=== PATIENT | female | born 1965 | race African-American/Black ===

== ENCOUNTER 2016-04-09 03:31 | Emergency (ER) | payer SELFPAY ==
[2016-04-09] MEDS ORDERED: MORPHINE SULFATE 10 MG/ML INJ IV ONE ×3 (04:34→09:05)
[2016-04-09] MEDS ORDERED: ONDANSETRON HCL INJ/PF 4 MG/2 ML SDV IV ONE ×2 (04:34→08:21)
[2016-04-09] MEDS ORDERED: NORMAL SALINE 1000 ML 1,000 ML IV ONE ×2 (04:34→07:14)
[2016-04-09 04:42] LABS: ABSOLUTE BASOPHILS # (AUTO) 0.1 10^3/uL (0.0-0.2); ABSOLUTE LYMPHOCYTES (AUTO) 0.9 10^3/uL (0.5-4.7); ABSOLUTE MONOCYTES (AUTO) 0.5 10^3/uL (0.1-1.4); ABSOLUTE NEUT (AUTO) 11.9 10^3/uL (1.7-8.2); BASOPHILS % (AUTO) 0.6 % (0-2); HEMATOCRIT 39.2 % (36.0-47.0); HGB HCT DIFFERENCE -0.2; LYMPHOCYTES % (AUTO) 6.9 % (13-45); MEAN CORPUSCULAR HGB CONC 33.1 g/dL (32.0-36.0); MEAN CORPUSCULAR VOLUME 76 fl (80-97); MONOCYTES % (AUTO) 3.4 % (3-13); RED BLOOD COUNT 5.19 10^6/uL (3.72-5.28); RED CELL DISTRIBUTION WIDTH 14.6 % (11.5-14.0); SEGMENTED NEUTROPHILS % (AUTO) 89.1 % (42-78); WHITE BLOOD COUNT 13.4 10^3/uL (4.0-10.5)
--- NOTE | 2016-04-09 04:44 | ER Document Report ---
ED GI/ - General Time seen by provider: 04:43 TRAVEL OUTSIDE OF THE [place] IN LAST 30 DAYS: No <ANNE MARIE MILES - Last Filed: 04/09/16 07:14> <PRICE VIRAMONTES - Last Filed: 04/09/16 11:45> <LEONORA ORTEGA - Last Filed: 04/09/16 12:07> - General Chief Complaint: Vomiting/Diarrhea Stated Complaint: VOMITING Notes: Patient is a 51-year-old female that comes emergency department for chief complaint of pain in her mid to left upper abdomen that is sharp, she states after the pain began she began to vomit, she vomited about 5 times and then came to the emergency department. Symptoms started at about 11:30 PM. She had a loose bowel movement at that time as well. She denies blood in vomit or stool. She denies fever. She denies injury. She has had a cholecystectomy, appendectomy, hysterectomy, also has had partial bowel resection and history of bowel obstruction. She reports only occasional alcohol use. Past medical history of hypertension, previously medicated but is on no current medications reportedly. (ANNE MARIE MILES) - Related Data Allergies/Adverse Reactions: ampicillin [Ampicillin] Allergy (Verified 04/09/16 03:37) cefoxitin sodium [From Mefoxin] Allergy (Verified 04/09/16 03:37) ciprofloxacin [From Cipro] Allergy (Verified 04/09/16 03:37) ciprofloxacin HCl [From Cipro] Allergy (Verified 04/09/16 03:37) erythromycin base [Erythromycin Base] Allergy (Verified 04/09/16 03:37) metronidazole [From Flagyl] Allergy (Verified 04/09/16 03:37) Metronidazole HCl [From Flagyl] Allergy (Verified 04/09/16 03:37) Penicillins Allergy (Verified 04/09/16 03:37) ranitidine HCl [From Zantac] Allergy (Verified 04/09/16 03:37) Past Medical History - General Information source: Patient - Social History Smoking Status: Current Some Day Smoker Frequency of alcohol use: Occasional Drug Abuse: None Lives with: Family Family History: Reviewed & Not Pertinent - Past Medical History Cardiac Medical History: Reports: Hx Hypertension Neurological Medical History: Reports: Hx Migraine Renal/ Medical History: Denies: Hx Peritoneal Dialysis Past Surgical History: Reports: Hx Appendectomy, Hx Bowel Surgery, Hx Cholecystectomy, Hx Hysterectomy - Immunizations Hx Diphtheria, Pertussis, Tetanus Vaccination: Yes <WENDY MILESAN Last Filed: 04/09/16 07:14> Review of Systems - Review of Systems Constitutional: No symptoms reported EENT: No symptoms reported Cardiovascular: No symptoms reported Respiratory: No symptoms reported Gastrointestinal: See HPI Genitourinary: No symptoms reported Female Genitourinary: No symptoms reported Musculoskeletal: No symptoms reported Skin: No symptoms reported Hematologic/Lymphatic: No symptoms reported Neurological/Psychological: No symptoms reported <WENDY MILESAN Last Filed: 04/09/16 07:14> Physical Exam - Vital signs Interpretation: Normal - General General appearance: Alert, Anxious In distress: Moderate - patient appears to be in significant pain, tearful - HEENT Head: Normocephalic, Atraumatic Eyes: Normal Pupils: PERRL - Respiratory Respiratory status: No respiratory distress. No: Respiratory distress, Tachypnea Chest status: Nontender Breath sounds: Normal. No: Decreased air movement, Wheezing Chest palpation: Normal - Cardiovascular Rhythm: Regular, Tachycardia Heart sounds: Normal auscultation, S1 appreciated, S2 appreciated Murmur: No - Abdominal Inspection: Normal Distension: No distension Bowel sounds: Normal Tenderness: Tender - very tender with guarding in the epigastric, LUQ, and mid left abdomen, Guarding Organomegaly: No organomegaly - Back Back: Normal, Nontender. No: Tender - Extremities General upper extremity: Normal inspection, Nontender, Normal color, Normal ROM , Normal temperature General lower extremity: Normal inspection, Nontender, Normal color, Normal ROM , Normal temperature, Normal weight bearing. No: Ely's sign - Neurological Neuro grossly intact: Yes Cognition: Normal Orientation: AAOx4 [place] Coma Scale Eye Opening: Spontaneous Sudeep Coma Scale Verbal: Oriented Sudeep Coma Scale Motor: Obeys Commands Sudeep Coma Scale Total: 15 Speech: Normal Motor strength normal: LUE, RUE, LLE, RLE Sensory: Normal - Psychological Associated symptoms: Agitated - Skin Skin Temperature: Warm Skin Moisture: Dry Skin Color: Normal <ANNE MARIE MILES Last Filed: 04/09/16 07:14> Course - Laboratory Result Diagrams: 04/09/16 04:21 04/09/16 04:21 <ALEAHANNE MARIE ORR Last Filed: 04/09/16 07:14> - Laboratory Result Diagrams: 04/09/16 04:21 04/09/16 04:21 <PRICE VIRAMONTES - Last Filed: 04/09/16 11:45> - Laboratory Result Diagrams: 04/09/16 04:21 04/09/16 04:21 <LEONORA ORTEGA - Last Filed: 04/09/16 12:07> - Re-evaluation Re-evalutation: Patient appears and is feeling much improved after morphine and Zofran, acute abdominal film performed, no evidence of free air, no air-fluid levels suggesting obstruction, lipase is normal, patient is very had a cholecystectomy and appendectomy. Leukocytosis at 13,000 with elevation of neutrophils, patient has been vomiting, this is nonspecific. Patient was discussed with Dr. Garcia. Patient does have a history of gastritis, has had this diagnosed by endoscopy, used to be on a "a lot of antacids", patient on repeat examination is now specifically tender in the left upper quadrant now that she has calmed down. Suspect at least a gastritis component. Giving Protonix. On reevaluation patient appears to be in significant pain again, will re-dose pain medication, CAT scan with IV and oral contrast will be performed to rule out developing obstruction, colitis, or other abnormality. 04/09/16 07:00 Urinalysis finally resulted, does show 80 ketones, does show hematuria, patient does have a history of kidney stones, however her pain is in the upper abdomen, not in the lower abdomen, she has mild but not remarkable flank pain, no large stone visible on acute abdominal series. Because of patient's history of bowel obstruction and multiple surgeries with upper abdominal pain CAT scan will be performed with contrast, patient is tolerating this well. Introduced to Price MEDINA at bedside, no current complaints. (ANNE MARIE MILES) 04/09/16 07:17 report received from HUMBERTO Wharton. Pt is presently awake, alert, drinking oral contrast. voices no complaints. VSS 04/09/16 08:20 pt vomiting. will order anti nausea med. told to hold on PO contract for now. 04/09/16 09:04 vomiting has resolved. pt able to finish contrast but c/o increased pain. will re-dose pain med prior to CT 04/09/16 09:[address] no n/v presently. continues to c/o Left sided abdominal pain. VSS 04/09/16 11:11 CT results showing 2mm left distal ureteral stone. This is consistent with pt' s pain and other symptoms. presently patient is reporting pain in the LLQ, radiating from left flank. pain to epigastric and LUQ areas are more muscular, abdominal wall pain most likely from the vomiting. pt is hemodynamically stable , afebrile, low suspicion for acute abdomen or sepsis. pt will be discharged home with Flomax, Percocet, Phenergan SD. I have discussed this case with Dr Allen per protocol and he agrees with assessment and plan to discharge. pt agreeable with plan (PRICE VIRAMONTES) 04/09/16 12:05 Patient discharged home found vomiting in the front lobby. I offered patient to return to be further evaluation and treatment. Patient declined. Patient reports she just is really go home. Patient was warned for further symptoms to return to the emergency department she verbalized understanding. Again declined to stay for treatment. (LEONORA ORTEGA) - Vital Signs Vital signs: Temp Pulse Resp BP Pulse Ox 98.3 F 104 H 14 151/89 H 97 04/09/16 11:40 04/09/16 03:42 04/09/16 11:02 04/09/16 11:02 04/09/16 11:02 (ANNE MARIE MILES) (PRICE VIRAMONTES) (LEONORA ORTEGA) - Laboratory Laboratory results interpreted by me: 04/09/16 04/09/16 04/09/16 04:21 04:21 06:43 WBC 13.4 H MCV 76 L MCH 25.0 L RDW 14.6 H Seg Neutrophils % 89.1 H Lymphocytes % 6.9 L Absolute Neutrophils 11.9 H Glucose 120 H Calcium 10.8 H AST 37 H Urine Protein 100 H Urine Ketones 80 H Urine Blood LARGE H Ur Leukocyte Esterase TRACE H (PRICE VIRAMONTES) (LEONORA ORTEGA) Discharge <ANNE MARIE MILES - Last Filed: 04/09/16 07:14> <PRICE VIRAMONTES - Last Filed: 04/09/16 11:45> <LEONORA ORTEGA - Last Filed: 04/09/16 12:07> - Discharge Clinical Impression: Kidney stone HTN (hypertension) Qualifiers: Hypertension type: essential hypertension Qualified Code(s): I10 - Essential ( primary) hypertension Condition: Stable Disposition: HOME, SELF-CARE Instructions: Antinausea Medication ([facility]), Intravenous (IV) Fluids ([facility]), Flomax ([facility]), Oral Narcotic Medication ([facility]) Additional Instructions: You have a 2mm left kidney stone. Please take the meds as prescribed to help with the pain, nausea and the passing of the stone Push your water intake Return to ER for any worsening of your condition. Prescriptions: Hydrochlorothiazide 25 mg PO DAILY #30 tablet Oxycodone HCl/Acetaminophen [Percocet 5-325 mg Tablet] 1 - 2 tab PO ASDIR PRN # 25 tablet PRN Reason: Promethazine HCl [Phenergan 25 mg Supp.rect] 1 supp SD Q6H #12 supp.rect Tamsulosin HCl [Flomax 0.4 mg Cap.sr] 0.4 mg PO DAILY #7 cap.sr.24h Forms: Return to Work, Elevated Blood Pressure
[2016-04-09 05:02] LABS: ALANINE AMINOTRANSFERASE 33 U/L (9-52); ALKALINE PHOSPHATASE 109 U/L (38-126); ANION GAP 14 (5-19); ASPARTATE AMINO TRANSFERASE 37 U/L (14-36); BILIRUBIN,TOTAL 0.7 mg/dL (0.2-1.3); BLOOD UREA NITROGEN 12 mg/dL (7-20); CALCIUM 10.8 mg/dL (8.4-10.2); CARBON DIOXIDE 25 mmol/L (22-30); CHLORIDE 104 mmol/L (98-107); CREATININE RESULT 0.98 mg/dL (0.52-1.25); GLUCOSE 120 mg/dL (75-110); LIPASE 31.4 U/L (23-300); POTASSIUM 4.1 mmol/L (3.6-5.0); SODIUM 142.8 mmol/L (137-145); TOTAL PROTEIN 7.8 g/dL (6.3-8.2)
[2016-04-09] MEDS ORDERED: SUCRALFATE 1 GM TABLET PO ONE (05:52)
[2016-04-09] MEDS ORDERED: MAG HYDROX/AL HYDROX/SIMETH SUSP 30 ML UDCUP PO ONE (05:52)
[2016-04-09] MEDS ORDERED: PANTOPRAZOLE SODIUM 40 MG VIAL IV ONE (05:52)
[2016-04-09] MEDS ORDERED: DIPHENHYDRAMINE HCL 50 MG/ML VIAL IV ONE (06:59)
[2016-04-09 07:07] LABS: APPEARANCE,URINE SLIGHTLY-CLOUDY; BILIRUBIN,URINE NEGATIVE (NEGATIVE); GLUCOSE, URINE NEGATIVE (NEGATIVE); KETONES,URINE 80 mg/dL (NEGATIVE); LEUKOCYTE ESTERASE,URINE TRACE (NEGATIVE); NITRITE,URINE NEGATIVE (NEGATIVE); PROTEIN,URINE 100 mg/dL (NEGATIVE); URINE SPECIFIC GRAVITY 1.016; UROBILINOGEN,URINE NEGATIVE mg/dL (<2.0)
[2016-04-09] MEDS ORDERED: PROMETHAZINE HCL 25 MG SUPP.RECT PR ONE (11:05)
[2016-04-09] MEDS ORDERED: TAMSULOSIN HCL 0.4 MG CAP.SR.24H PO ONE (11:21)
[2016-04-09 11:27] VITALS: BP 151/89
== END 2016-04-09 11:45 | disposition home or self-care (01) ==
LOC: ER 03:31
DX: N20.0 Calculus of kidney (principal); I10 Essential (primary) hypertension; R11.10 Vomiting, unspecified; R19.7 Diarrhea, unspecified; R10.12 Left upper quadrant pain; F17.210 Nicotine dependence, cigarettes, uncomplicated
CPT/HCPCS: 96376; 99285; 96361; 96374; 96375; 36415; 83690; 85025; 80053; 81001; 74022; 74177; J1200; J2270; S0164; J3490; J2405; J7030

== ENCOUNTER 2016-07-05 11:29 | Emergency (ER) | payer SELFPAY ==
[2016-07-05] MEDS ORDERED: ASPIRIN 81 MG TABLET, CHEWABLE PO ONE (11:41)
[2016-07-05] MEDS ORDERED: IBUPROFEN 800 MG TABLET PO ONE (12:11)
[2016-07-05] MEDS ORDERED: ONDANSETRON HCL INJ/PF 4 MG/2 ML SDV IV ONE (12:11)
[2016-07-05] MEDS ORDERED: BUTALB/ACETAMINOPHEN/CAFFEINE 1 TAB EACH PO ONE (12:22)
[2016-07-05 12:34] LABS: ABSOLUTE BASOPHILS # (AUTO) 0.1 10^3/uL (0.0-0.2); ABSOLUTE EOSINOPHILS # (AUTO) 0.2 10^3/uL (0.0-0.6); ABSOLUTE LYMPHOCYTES (AUTO) 2.8 10^3/uL (0.5-4.7); ABSOLUTE MONOCYTES (AUTO) 0.6 10^3/uL (0.1-1.4); ABSOLUTE NEUT (AUTO) 5.6 10^3/uL (1.7-8.2); BASOPHILS % (AUTO) 0.7 % (0-2); EOSINOPHILS % (AUTO) 2.5 % (0-6); HEMATOCRIT 36.3 % (36.0-47.0); HEMOGLOBIN 11.8 g/dL (12.0-15.5); HGB HCT DIFFERENCE -0.9; LYMPHOCYTES % (AUTO) 30.2 % (13-45); MEAN CORPUSCULAR HEMOGLOBIN 24.6 pg (27.0-33.4); MEAN CORPUSCULAR HGB CONC 32.5 g/dL (32.0-36.0); MEAN CORPUSCULAR VOLUME 76 fl (80-97); MONOCYTES % (AUTO) 6.2 % (3-13); RED BLOOD COUNT 4.79 10^6/uL (3.72-5.28); RED CELL DISTRIBUTION WIDTH 14.7 % (11.5-14.0); SEGMENTED NEUTROPHILS % (AUTO) 60.4 % (42-78); WHITE BLOOD COUNT 9.3 10^3/uL (4.0-10.5)
--- NOTE | 2016-07-05 12:35 | RADIOLOGY REPORT (SQ) ---
EXAM DESCRIPTION: CHEST SINGLE VIEW COMPLETED DATE/TIME: 07/05/2016 12:23 pm REASON FOR STUDY: chest pain COMPARISON: 04/12/2015 EXAM PARAMETERS: NUMBER OF VIEWS: One view. TECHNIQUE: Single frontal radiographic view of the chest acquired. RADIATION DOSE: NA LIMITATIONS: None. FINDINGS: LUNGS AND PLEURA: No opacities, masses or pneumothorax. No pleural effusion. MEDIASTINUM AND HILAR STRUCTURES: No masses. Contour normal. HEART AND VASCULAR STRUCTURES: Heart normal in size. Normal vasculature. BONES: No acute findings. HARDWARE: None in the chest. OTHER: No other significant finding. IMPRESSION: NO ACUTE RADIOGRAPHIC FINDING IN THE CHEST. TECHNICAL DOCUMENTATION: JOB ID: [id number]
--- NOTE | 2016-07-05 12:46 | ER Document Report ---
ED General - General Chief Complaint: Chest Pain Stated Complaint: CHEST PAIN Time Seen by Provider: 07/05/16 11:41 Mode of Arrival: Medic Information source: Patient Notes: 51-year-old female history of hypertension with complaints of chest pressure sensation. She denies any fevers or chills nausea vomiting or diarrhea. Patient notes that she will intermittently have chest pain every 2-3 months, crushing midsternal associated with sob , pt given nitro with releif pt also admits to chronic migraine headaches, worsening headache after nitro TRAVEL OUTSIDE OF THE [place] IN LAST 30 DAYS: No - HPI Onset: Yesterday Onset/Duration: Sudden Quality of pain: Pressure Severity: Moderate Pain Level: 2 Associated symptoms: Chest pain Exacerbated by: Denies Relieved by: Denies Similar symptoms previously: Yes Recently seen / treated by doctor: Yes - Related Data Allergies/Adverse Reactions: ampicillin [Ampicillin] Allergy (Verified 04/09/16 03:37) cefoxitin sodium [From Mefoxin] Allergy (Verified 04/09/16 03:37) ciprofloxacin [From Cipro] Allergy (Verified 04/09/16 03:37) ciprofloxacin HCl [From Cipro] Allergy (Verified 04/09/16 03:37) erythromycin base [Erythromycin Base] Allergy (Verified 04/09/16 03:37) metronidazole [From Flagyl] Allergy (Verified 04/09/16 03:37) Metronidazole HCl [From Flagyl] Allergy (Verified 04/09/16 03:37) Penicillins Allergy (Verified 04/09/16 03:37) ranitidine HCl [From Zantac] Allergy (Verified 04/09/16 03:37) Past Medical History - Social History Smoking Status: Never Smoker Cigarette use (# per day): No Chew tobacco use (# tins/day): No Smoking Education Provided: No Family History: Reviewed & Not Pertinent - Past Medical History Cardiac Medical History: Reports: Hx Hypertension Neurological Medical History: Reports: Hx Migraine Renal/ Medical History: Denies: Hx Peritoneal Dialysis Past Surgical History: Reports: Hx Appendectomy, Hx Bowel Surgery, Hx Cholecystectomy, Hx Hysterectomy - Immunizations Hx Diphtheria, Pertussis, Tetanus Vaccination: Yes Review of Systems - Review of Systems Notes: PHYSICAL EXAMINATION: GENERAL: Well-appearing, well-nourished and in no acute distress. HEAD: Atraumatic, normocephalic. EYES: Pupils equal round and reactive to light, extraocular movements intact, conjunctiva are normal. ENT: Nares patent, oropharynx clear without exudates. Moist mucous membranes. NECK: Normal range of motion, supple without lymphadenopathy LUNGS: Breath sounds clear to auscultation bilaterally and equal. No wheezes rales or rhonchi. HEART: Regular rate and rhythm without murmurs ABDOMEN: Soft, nontender, nondistended abdomen. No guarding, no rebound. No masses appreciated. Female : deferred Musculoskeletal: Normal range of motion, no pitting or edema. No cyanosis. NEUROLOGICAL: Cranial nerves grossly intact. Normal speech, normal gait. Normal sensory, motor exams PSYCH: Normal mood, normal affect. SKIN: Warm, Dry, normal turgor, no rashes or lesions noted. Physical Exam - Vital signs Vitals: Resp BP Pulse Ox 22 H 141/88 H 99 07/05/16 12:00 07/05/16 12:00 07/05/16 12:00 Course - Re-evaluation Re-evalutation: 07/05/16 12:46 Cardiac enzymes lab work imaging are pending at this time 07/05/16 13:34 Troponin is not elevated, patient's chest pain has resolved. Patient was offered admission, she refuses to be admitted at this time. Patient understands risks and benefits, family member agrees to follow-up with cardiology and watch her today After performing a Medical Screening Examination, I spoke with the patient at length in regards to leaving the hospital against medical advice. I do not believe the patient should leave but the patient is alert oriented x4, understands the risks and benefits of staying and leaving including disability and . Pt understands that she can return at any time for further care and is more than welcome to do so. Pt verbalizes this understanding. - Vital Signs Vital signs: Temp Pulse Resp BP Pulse Ox 98.5 F 22 H 141/88 H 99 07/05/16 12:26 07/05/16 12:00 07/05/16 12:00 07/05/16 12:00 - Laboratory Result Diagrams: 07/05/16 12:02 07/05/16 12:02 Laboratory results interpreted by me: 07/05/16 07/05/16 12:02 12:02 Hgb 11.8 L MCV 76 L MCH 24.6 L RDW 14.7 H Sodium 145.1 H Creatine Kinase 345 H - Diagnostic Test Radiology reviewed: Image reviewed, Reports reviewed - EKG Interpretation by Me EKG shows normal: Sinus rhythm, [place], Intervals, QRS Complexes Discharge - Discharge Clinical Impression: Essential hypertension Chest pain Qualifiers: Chest pain type: unspecified Qualified Code(s): R07.9 - Chest pain, unspecified Migraine headache Qualifiers: Migraine type: unspecified Status migrainosus presence: without status migrainosus Intractability: not intractable Qualified Code(s): G43.909 - Migraine, unspecified, not intractable, without status migrainosus Condition: Stable Disposition: HOME, SELF-CARE Instructions: Chest Pain of Unclear Cause ([facility]) Referrals: LUIS MCCURDY FNP [Primary Care Provider] - Follow up as needed ROXANA BEJARANO MD [ACTIVE STAFF] - Follow up tomorrow RAGINI VELA MD [ACTIVE STAFF] - Follow up tomorrow
[2016-07-05 12:54] LABS: ALANINE AMINOTRANSFERASE 35 U/L (9-52); ALBUMIN 4.5 g/dL (3.5-5.0); ALKALINE PHOSPHATASE 71 U/L (38-126); ANION GAP 13 (5-19); ASPARTATE AMINO TRANSFERASE 33 U/L (14-36); BILIRUBIN,DIRECT 0.3 mg/dL (0.0-0.4); BILIRUBIN,TOTAL 0.6 mg/dL (0.2-1.3); BLOOD UREA NITROGEN 11 mg/dL (7-20); CALCIUM 9.7 mg/dL (8.4-10.2); CARBON DIOXIDE 26 mmol/L (22-30); CHLORIDE 106 mmol/L (98-107); CREATINE KINASE 345 U/L (30-135); CREATININE RESULT 0.63 mg/dL (0.52-1.25); GLUCOSE 109 mg/dL (75-110); SODIUM 145.1 mmol/L (137-145); TOTAL PROTEIN 7.1 g/dL (6.3-8.2)
[2016-07-05 13:06] LABS: CREATINE KINASE MB 1.87 ng/mL (<4.55)
[2016-07-05 13:07] LABS: TROPONIN I < 0.012 ng/mL
--- NOTE | 2016-07-05 13:35 | EKG REPORT ---
SEVERITY:- ABNORMAL ECG - SINUS RHYTHM CONSIDER LEFT VENTRICULAR HYPERTROPHY : Confirmed by: Devon Breen MD 05-Jul-2016 13:34:28
[2016-07-05 13:42] VITALS: BP 133/96
== END 2016-07-05 13:56 | disposition home or self-care (01) ==
LOC: ER 11:29
DX: R07.89 Other chest pain (principal); G43.909 Migraine, unspecified, not intractable, without status migrainosus; I10 Essential (primary) hypertension; R06.02 Shortness of breath; Z88.0 Allergy status to penicillin; Z88.1 Allergy status to other antibiotic agents; Z88.8 Allergy status to other drugs, medicaments and biological substances
CPT/HCPCS: 93005; 99285; 96374; 36415; 82553; 82550; 85025; 80053; 84484; 71010; 93010; J3490; J2405

== ENCOUNTER 2016-07-24 18:19 | Emergency (ER) | payer SELFPAY ==
[2016-07-24] MEDS ORDERED: NORMAL SALINE 1000 ML 1,000 ML IV ONE (19:34)
[2016-07-24] MEDS ORDERED: KETOROLAC TROMETHAMINE INJ/PF 30 MG/1 ML SDV IV ONE (19:35)
[2016-07-24] MEDS ORDERED: METOCLOPRAMIDE HCL INJ/PF 10 MG/2 ML SDV IV ONE (19:35)
[2016-07-24] MEDS ORDERED: DIPHENHYDRAMINE HCL 50 MG/ML VIAL IV ONE (19:35)
--- NOTE | 2016-07-24 19:35 | ER Document Report ---
ED Headache - General Chief Complaint: Headache Stated Complaint: HEADACHE Time Seen by Provider: 07/24/16 19:21 Notes: The patient is a 51-year-old female, past medical history chronic migraines, hypertension, presents with 1 day of her usual bilateral temporal migraines. She says that Stadol has helped her in the past, but she ran out of her prescription. She saw her primary care physician 2 days ago, but the PMD had a emergency and she cannot have the prescription refilled. She is also having a mild ache in her left arm and leg that started several days ago. She denies numbness, tingling, fevers, nausea, vomiting, blurry vision, neck stiffness, ataxia or back pain. TRAVEL OUTSIDE OF THE [place] IN LAST 30 DAYS: No - Related Data Allergies/Adverse Reactions: ampicillin [Ampicillin] Allergy (Verified 07/24/16 18:27) cefoxitin sodium [From Mefoxin] Allergy (Verified 07/24/16 18:27) ciprofloxacin [From Cipro] Allergy (Verified 07/24/16 18:27) ciprofloxacin HCl [From Cipro] Allergy (Verified 07/24/16 18:27) erythromycin base [Erythromycin Base] Allergy (Verified 07/24/16 18:27) metronidazole [From Flagyl] Allergy (Verified 07/24/16 18:27) Metronidazole HCl [From Flagyl] Allergy (Verified 07/24/16 18:27) Penicillins Allergy (Verified 07/24/16 18:27) ranitidine HCl [From Zantac] Allergy (Verified 07/24/16 18:27) Past Medical History - General Information source: Patient - Social History Smoking Status: Current Every Day Smoker Family History: Reviewed & Not Pertinent Patient has suicidal ideation: No Patient has homicidal ideation: No - Past Medical History Cardiac Medical History: Reports: Hx Hypertension Neurological Medical History: Reports: Hx Migraine Renal/ Medical History: Denies: Hx Peritoneal Dialysis Past Surgical History: Reports: Hx Appendectomy, Hx Bowel Surgery, Hx Cholecystectomy, Hx Hysterectomy - Immunizations Hx Diphtheria, Pertussis, Tetanus Vaccination: Yes Review of Systems - Review of Systems Notes: REVIEW OF SYSTEMS: CONSTITUTIONAL: -fevers, -chills EENT: -eye pain, -difficulty swallowing, -nasal congestion CARDIOVASCULAR:-chest pain, -syncope. RESPIRATORY: -cough, -SOB GASTROINTESTINAL: -abdominal pain, - nausea, -vomiting, -diarrhea GENITOURINARY: -dysuria, -hematuria MUSCULOSKELETAL: +left arm and leg pain, -back pain, -neck pain SKIN: -rash or skin lesions. HEMATOLOGIC: -easy bruising or bleeding. LYMPHATIC: -swollen, enlarged glands. NEUROLOGICAL: -altered mental status or loss of consciousness, +headache, - neurologic symptoms PSYCHIATRIC: -anxiety, -depression. ALL OTHER SYSTEMS REVIEWED AND NEGATIVE. Physical Exam - Vital signs Vitals: Temp Pulse Resp BP Pulse Ox 98.1 F 83 18 152/111 H 97 07/24/16 18:28 07/24/16 18:28 07/24/16 18:28 07/24/16 18:28 07/24/16 18:28 - Notes Notes: PHYSICAL EXAMINATION: GENERAL: Holding head and rocking back and forth in room HEAD: Atraumatic, normocephalic. EYES: Pupils equal round and reactive to light, extraocular movements intact, sclera anicteric, conjunctiva are normal. ENT: nares patent, oropharynx clear without exudates. Moist mucous membranes. NECK: Normal range of motion, supple without lymphadenopathy LUNGS: Breath sounds clear to auscultation bilaterally and equal. No wheezes rales or rhonchi. HEART: Regular rate and rhythm without murmurs ABDOMEN: Soft, nontender, normoactive bowel sounds. No guarding, no rebound. No masses appreciated. EXTREMITIES: Normal range of motion, no pitting or edema. No cyanosis. NEUROLOGICAL: Cranial nerves grossly intact. Normal speech, normal gait. Normal sensory and motor exams. PSYCH: Normal mood, normal affect. SKIN: Warm, Dry, normal turgor, no rashes or lesions noted. Course - Re-evaluation Re-evalutation: Headache is exactly the same as her prior migraines. Do not suspect meningitis , ICH SAH at this time. After her migraines cocktail, she feels much better. Her left arm and leg pain may be from her lifting. No evidence of injuries and strong distal pulses. Instructed her to follow-up with her primary care physician for a refill of her Stadol and further evaluation and treatment. - Vital Signs Vital signs: Temp Pulse Resp BP Pulse Ox 98.1 F 83 18 152/111 H 97 07/24/16 18:28 07/24/16 18:28 07/24/16 18:28 07/24/16 18:28 07/24/16 18:28 Discharge - Discharge Clinical Impression: Recurrent headache Condition: Stable Disposition: HOME, SELF-CARE Additional Instructions: HEADACHE: The physician does not feel that the headache you are experiencing has a serious underlying cause. Most headaches are due to emotional stress, with resultant muscle tension (tension headache). Occasionally, headaches are secondary to changes in the blood vessels of the scalp (vascular headache and migraine headache). Sometimes, a headache is the first symptom of another developing illness, such as a viral infection. You have no evidence of stroke, bleeding, meningitis, or other serious cause of your headache. The treatment of headaches varies with the severity and cause of the pain. Not all headaches need pain shots. In fact, there is evidence that using narcotics for headaches may make them worse in the long run. The physician will determine the therapy that's in your best interest. If you develop a fever, if the headache is different from any you've previously experienced, or if the headache progressively worsens, then call your physician at once or go to the emergency room. REGLAN (METOCLOPRAMIDE): Reglan has been prescribed. This medicine affects the stomach and intestines. It can be used to treat nausea and vomiting, to prevent reflux of stomach acid up into the esophagus, or to increase the contractions of the stomach and intestines. It is often prescribed for esophagitis, and for paralysis of the stomach in diabetics. Reglan can cause either mild restlessness or drowsiness. You should contact the doctor at once if you become extremely restless, anxious, or cannot sleep, or if you develop uncontrollable motions of the lips, tongue, or jaw. Do not take alcohol with this medicine. Do not drive or operate machinery until you have been taking this medicine long enough to know how it affects you. Call the doctor if you develop abdominal pains, lightheadedness, black stool, or blood in the stool or vomitus. USE OF DIPHENHYDRAMINE: Diphenhydramine (Benadryl) is an antihistamine and has been recommended to help treat your headache and to prevent side effects of other medications used to treat headaches. The medication can be repeated four times daily. Age Elixir (12.5 mg/tsp) 25 mg pill adult 1-2 tabs Antihistamines may cause drowsiness, especially with the first dose. Do not operate machinery or drive while under the effects of the medication. Do not combine the medication with alcohol, or with any other medication without talking to your doctor. ANTINAUSEA MEDICATION: You have been given a medication to suppress nausea and vomiting. This type of medication can be given as a shot, pill, or suppository. It will usually last for many hours. Pills and shots usually last six to eight hours, suppositories last about 12 hours. For the typical illness, only one or two doses of the medication may be necessary. Mild lightheadedness may occur. This type of medicine can cause drowsiness. Do not drive or operate dangerous machinery while under its influence. Do not mix with alcohol. See your doctor at once if you have muscle spasms or tightness, or uncontrollable motions (particularly of the neck, mouth, or jaw). Persistent vomiting or severe lightheadedness should also be evaluated by the physician. TORADOL INJECTION: You have been given an injection of ketorolac tromethamine (Toradol). This is an excellent, safe drug for pain control. It also has potent antiinflammatory action. You should have significant pain relief within about one hour. Toradol is not addicting and is non-sedating. It does not interfere with driving or work. Call or return if you develop itching, hives, shortness of breath, or rash. FOLLOW-UP CARE: If you have been referred to a physician for follow-up care, call the physician s office for an appointment as you were instructed or within the next two days. If you experience worsening or a significant change in your symptoms, notify the physician immediately or return to the Emergency Department at any time for re-evaluation. Prescriptions: Hydrochlorothiazide 25 mg PO DAILY #30 tablet Forms: Elevated Blood Pressure
[2016-07-24 21:40] VITALS: BP 114/73
== END 2016-07-24 21:38 | disposition home or self-care (01) ==
LOC: ER 18:19
DX: R51 Headache (principal); I10 Essential (primary) hypertension; M79.602 Pain in left arm; F17.200 Nicotine dependence, unspecified, uncomplicated
CPT/HCPCS: 99284; 96361; 96374; 96375; J1200; J1885; J2765; J7030

== ENCOUNTER 2017-11-14 10:02 | Emergency (ER) | payer SELFPAY ==
[2017-11-14] MEDS ORDERED: DEXAMETHASONE SOD PHOS INJ 10 MG/1 ML VIAL IM ONE (10:43)
[2017-11-14] MEDS ORDERED: LIDOCAINE 5% (700 MG) TRANSDERMAL ADH..PATCH TP ONE (10:43)
[2017-11-14] MEDS ORDERED: KETOROLAC TROMETHAMINE INJ/PF 30 MG/1 ML SDV IM ONE (10:43)
--- NOTE | 2017-11-14 10:49 | ER Document Report ---
ED Neck/Back Problem - General Chief Complaint: Back Pain Stated Complaint: BACK PAIN Time Seen by Provider: 11/14/17 10:32 Mode of Arrival: Ambulatory Information source: Patient Notes: 52-year-old female presents to ED for complaint of back pain times 2 weeks. She states it radiates down both legs. She also complains of left shoulder pain since May. 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 She is alert and oriented respirations regular and unlabored speaking in full sentences. TRAVEL OUTSIDE OF THE [place] IN LAST 30 DAYS: No - HPI Patient complains to provider of: Pain, Injury, Lower back - And left shoulder Onset: Other - Left shoulder and sacral low back for 2 weeks Where: Work Onset: Gradual Timing: Still present, Worse Quality of pain: Sharp Severity: Moderate Pain Level: 4 Context: Bending, Lifting, Turning Recent injury: Possibly Associated symptoms: Like prior neck/back pain, Numbness/tingling, Radiation to leg, Lower back pain, Other - Shoulder pain with any movement Exacerbated by: Movement of trunk, Sitting position Relieved by: Nothing Similar symptoms previously: Yes Recently seen / treated by doctor: No - Related Data Allergies/Adverse Reactions: ampicillin [Ampicillin] Allergy (Verified 11/14/17 10:04) cefoxitin sodium [From Mefoxin] Allergy (Verified 11/14/17 10:04) ciprofloxacin [From Cipro] Allergy (Verified 11/14/17 10:04) ciprofloxacin HCl [From Cipro] Allergy (Verified 11/14/17 10:04) erythromycin base [Erythromycin Base] Allergy (Verified 11/14/17 10:04) metronidazole [From Flagyl] Allergy (Verified 11/14/17 10:04) Metronidazole HCl [From Flagyl] Allergy (Verified 11/14/17 10:04) Penicillins Allergy (Verified 11/14/17 10:04) ranitidine HCl [From Zantac] Allergy (Verified 11/14/17 10:04) Past Medical History - General Information source: Patient - Social History Smoking Status: Current Every Day Smoker Cigarette use (# per day): Yes Smoking Education Provided: Yes - 4 minutes Frequency of alcohol use: None Drug Abuse: None Lives with: Family Family History: Reviewed & Not Pertinent Patient has suicidal ideation: No Patient has homicidal ideation: No - Past Medical History Cardiac Medical History: Reports: Hx Hypertension Pulmonary Medical History: Reports: Hx Asthma EENT Medical History: Reports: None Neurological Medical History: Reports: Hx Migraine Endocrine Medical History: Reports: None Renal/ Medical History: Reports: Hx Kidney Stones Malignancy Medical History: Reports: None GI Medical History: Reports: None Musculoskeletal Medical History: Reports Hx Arthritis, Reports Hx Musculoskeletal Trauma Skin Medical History: Reports None Psychiatric Medical History: Reports: None Traumatic Medical History: Reports: None Infectious Medical History: Reports: None Past Surgical History: Reports: Hx Appendectomy, Hx Bowel Surgery - obstruction , Hx Cholecystectomy, Hx Hysterectomy - Immunizations Hx Diphtheria, Pertussis, Tetanus Vaccination: Yes Review of Systems - Review of Systems Constitutional: No symptoms reported EENT: No symptoms reported Cardiovascular: No symptoms reported Respiratory: No symptoms reported Gastrointestinal: No symptoms reported Genitourinary: No symptoms reported Female Genitourinary: No symptoms reported Musculoskeletal: Back pain - Low back, Joint pain - Left shoulder Skin: No symptoms reported Hematologic/Lymphatic: No symptoms reported Neurological/Psychological: No symptoms reported -: Yes All other systems reviewed and negative Physical Exam - Vital signs Vitals: Temp Pulse Resp BP Pulse Ox 98.7 F 89 18 140/90 H 98 11/14/17 10:10 11/14/17 10:10 11/14/17 10:10 11/14/17 10:10 11/14/17 10:10 Interpretation: Normal - General General appearance: Appears well, Alert - HEENT Head: Normocephalic, Atraumatic Eyes: Normal Pupils: PERRL - Respiratory Respiratory status: No respiratory distress Chest status: Nontender Breath sounds: Normal Chest palpation: Normal - Cardiovascular Rhythm: Regular Heart sounds: Normal auscultation Murmur: No - Abdominal Inspection: Healed incision Distension: No distension Bowel sounds: Normal Tenderness: Nontender Organomegaly: No organomegaly - Back Back: Tender, Vertebra tenderness. No: Deformity/step-off, CVA tenderness, Scars, Scoliosis, Wounds Notes: No signs or symptoms of cauda equina, no loss of control of bowel or bladder, no loss of control of lower extremities, no saddle anesthesia, no decrease in sensation to the legs. Patient also has pain to the left rotator cuff. She does have some limited motion to the shoulder due to pain. When supported the weight she can move the arm. - Extremities General upper extremity: Normal inspection, Normal color, Normal temperature General lower extremity: Normal inspection, Nontender, Normal color, Normal ROM , Normal temperature, Normal weight bearing. No: Ely's sign Shoulder: Tender, Limited ROM - Due to pain. No: Abrasion, Dislocation, Ecchymosis, Instability, Laceration - Neurological Neuro grossly intact: Yes Cognition: Normal Orientation: AAOx4 Sudeep Coma Scale Eye Opening: Spontaneous Sudeep Coma Scale Verbal: Oriented Alexis Coma Scale Motor: Obeys Commands Alexis Coma Scale Total: 15 Speech: Normal Motor strength normal: LUE, RUE, LLE, RLE Sensory: Normal Biceps - Reflex grade: 2 = Normal Triceps - Reflex grade: 2 = Normal Brachioradialis - Reflex grade: 2 = Normal Knee - Reflex grade: 2 = Normal Ankle - Reflex grade: 2 = Normal - Psychological Associated symptoms: Normal affect, Normal mood - Skin Skin Temperature: Warm Skin Moisture: Dry Skin Color: Normal Course - Re-evaluation Re-evalutation: 11/14/17 21:16 X-rays were discussed with patient and written report of x-rays given to patient. Patient was given name and number of orthopedics to follow-up with. Patient was given exercises for the low back and the shoulder. Patient instructed to follow-up with orthopedics by telephone and schedule a follow-up appointment. - Vital Signs Vital signs: Temp Pulse Resp BP Pulse Ox 98.2 F 76 16 135/70 H 98 11/14/17 12:04 11/14/17 12:04 11/14/17 12:04 11/14/17 12:04 11/14/17 12:04 - Diagnostic Test Radiology reviewed: Image reviewed, Reports reviewed Discharge - Discharge Clinical Impression: Left shoulder pain Qualifiers: Chronicity: chronic Qualified Code(s): M25.512 - Pain in left shoulder Low back pain Qualifiers: Chronicity: acute Back pain laterality: bilateral Sciatica presence: with sciatica Sciatica laterality: bilateral sciatica Qualified Code(s): M54.42 - Lumbago with sciatica, left side Condition: Stable Disposition: HOME, SELF-CARE Instructions: Family Physicians / Practices Additional Instructions: Shoulder Injury You have injured your shoulder. This usually results from stretching or tearing of the tendons during trauma. Time and protection are required in order to heal properly. Many injuries are quite disabling, and should be taken seriously. Initial treatment includes cold packs and a sling to rest the shoulder. The physician has assessed the seriousness of your injury, and has outlined a treatment plan. Understand that this treatment may change, depending on how you progress. If a re-examination was recommended, it is important that you follow up as instructed. Some shoulder injuries (such as partial tear of the rotator cuff) are only suspected after you've failed to improve. Call us if there's severe pain, numbness, or loss of function. Exercise Program for the Shoulder Since the shoulder moves in so many directions, the joint attachment is weak. Muscles provide most of the stability to the shoulder. You must exercise your shoulder to prevent painful instability or stiffening. PASSIVE - These may be begun within a few days of the injury. While standing, lean forward, allowing the arm to hang down towards the floor. Move the arm in small circles while slowly twisting your chest towards and away from the hanging arm. Do this for one minute. ACTIVE - These may be performed when the doctor gives permission. Begin with the arms at the sides. Raise the arms forward (shoulder's width apart) until they reach shoulder level. Then slowly swing both arms back until they are aiming straight out away from each other. Then bring them forward again, and finally, lower them to your sides. Repeat 20 to 30 times. As you improve, put weights in your hands for the exercise. Start with one pound, and work up to 10 pounds. Never use more than is comfortable. Athletes may work up to 30 pounds. LOW BACK PAIN: Three out of every four people will have an episode of disabling back pain during their lifetime. Most commonly the pain is due to straining of the muscles and ligaments in the low back. Usual treatment includes: (1) Rest on a firm surface. Avoid lying on your stomach. (2) Ice pack the painful area. After a few days, gentle heat may be used intermittently to relax the area, or ice packs can be continued. (3) Medication may be needed -- muscle relaxers and antiinflammatory medicines are commonly used. (4) As the back improves, exercises are prescribed to strengthen the back and abdominal muscles. Your doctor will advise you on the proper care for your back at each stage in your recovery. You may be better in a few days -- or healing may take several weeks. If new symptoms of a "herniated disc" (radiation of pain, numbness, or tingling down the back of the leg or weakness in the leg) occur, you should be re-examined. Further testing may be necessary. Toradol Injection You have been given an injection of ketorolac tromethamine (Toradol). This is an excellent, safe drug for pain control. It also has potent antiinflammatory action. You should have significant pain relief within about one hour. Toradol is not addicting and is non-sedating. It does not interfere with driving or work. Call or return if you develop itching, hives, shortness of breath, or rash. STEROID MEDICATION: You have been given an injection of medicine of the cortisone/steroid class. This medication is used to control inflammation or allergy. It is often continued as a pill for a short period of time, until the acute process subsides. There are usually no side effects from short-term use of cortisone-like medications. Some persons feel an increased sense of well-being and are not sleepy at bedtime. Long-term use of cortisone medications is best avoided, unless required for a severe condition. If your condition does not remit, or relapses after the course of corticosteroid medication, you should consult your physician. Stretching Exercises for the Back The physician has recommended that you begin stretching exercises for your back. These are often used even while the back is painful. However, you should notify the physician if the activities seem to increase your pain. PELVIC TILT: Lie flat on your back with knees bent. Tighten your stomach and buttock muscles so it flattens your lower back against the floor. Hold 10 seconds. Repeat 10 times, twice daily. KNEE RAISE: Lying on the back with knees bent, raise one knee to your chest, then the other. Hold both knees against the chest 10 seconds, then lower one knee at a time. Repeat 10 times, twice daily. PARTIAL TRUNK RAISE: Lie face down, arms at your sides. Keeping your waist on the floor, use your arms raise your chest up. Support yourself on your elbows for 30 seconds. Repeat twice daily, increasing the time to two minutes as you recover. MUSCLE RELAXERS: Muscle relaxing medications are usually prescribed for acute muscle spasm or injury to the neck and back. They are often combined with antiinflammatory pain medication for increased relief. You may stop the muscle relaxer when the pain and stiffness have improved. Start the medication again if spasms recur. Muscle relaxers may cause drowsiness, especially with the first dose. Do not operate machinery or drive while under the effects of the medication. Most muscle relaxers last up to 24 hours. Do not combine the medication with alcohol. ICE PACKS: Apply ice packs frequently against the painful area. Many different schedules are recommended, such as "20 minutes on, 20 minutes off" or "one hour ice, two hours rest." If you need to work, you may need to go longer between ice treatments. You should plan to have the area ice packed AT LEAST one fourth of the time. The ice should be applied over the wrap, tape, or splint, or over a layer of cloth -- not directly against the skin. Some ice bags have a built-in cloth and can be put directly on the skin. WARM PACKS: After approximately two days, apply gentle heat (such as a heating pad or hot water bottle) for about 20 to 30 minutes about every two hours -- at least four times daily. Warmth and elevation will help you make a more rapid recovery , and will ease the pain considerably. Do not use HOT heat, and never apply heat for longer than 30 minutes. The continuous heat can invisibly damage skin and muscles -- even when no burn is seen on the surface. Damaged muscles can make you MORE sore. Lidocaine patches may also help with your pain. We did put a Lidoderm patch on in the emergency room. You can buy patches [id number]. FOLLOW-UP CARE: If you have been referred to a physician for follow-up care, call the physician s office for an appointment as you were instructed or within the next two days. If you experience worsening or a significant change in your symptoms, notify the physician immediately or return to the Emergency Department at any time for re-evaluation. Prescriptions: Methocarbamol [Robaxin 500 mg Tablet] 500 mg PO BIDP PRN #14 tablet PRN Reason: For Back Pain Forms: Elevated Blood Pressure, Smoking Cessation Education, Return to Work Referrals: [facility] [Provider Group] - Follow up as needed
--- NOTE | 2017-11-14 11:16 | RADIOLOGY REPORT (SQ) ---
EXAM DESCRIPTION: SHOULDER LEFT 2 OR MORE VIEWS COMPLETED DATE/TIME: 11/14/2017 11:04 am REASON FOR STUDY: pain with any movement of left arm, no known injury, diffuse left shoulder pain COMPARISON: None. NUMBER OF VIEWS: Three views. TECHNIQUE: Internal rotation, external rotation, and Y view images acquired of the left shoulder. LIMITATIONS: None. FINDINGS: MINERALIZATION: Normal. BONES: No acute fracture or dislocation. No worrisome bone lesions. JOINTS: No glenohumeral malalignment. No acromioclavicular joint widening VISUALIZED LUNGS AND RIBS: No pneumothorax. No rib fracture. SOFT TISSUES: No radiopaque foreign body. OTHER: No other significant finding. IMPRESSION: NEGATIVE STUDY OF THE LEFT SHOULDER. NO RADIOGRAPHIC EVIDENCE OF ACUTE INJURY. TECHNICAL DOCUMENTATION: JOB ID: [id number] [employer]- All Rights Reserved Reading location - IP/workstation name: [email or web address]
--- NOTE | 2017-11-14 11:17 | RADIOLOGY REPORT (SQ) ---
EXAM DESCRIPTION: L SPINE WHOLE COMPLETED DATE/TIME: 11/14/2017 11:04 am REASON FOR STUDY: pain for 2 weeks getting worse radiates down both COMPARISON: 04/26/2008, 07/08/2007, 10/16/2006 NUMBER OF VIEWS: Five views including obliques. TECHNIQUE: AP, lateral, oblique, and sacral radiographic images acquired of the lumbar spine. LIMITATIONS: None. FINDINGS: MINERALIZATION: Normal. SEGMENTATION: There are only 4 lumbar vertebral body present. ALIGNMENT: Normal. VERTEBRAE: Maintained height. No fracture or worrisome bone lesion. DISCS: Preserved height. No significant osteophytes or end plate irregularity. POSTERIOR ELEMENTS: Pedicles and facets are intact. No pars defect or posterior arch defects. Moder ate facet arthropathy at the lower lumbar spine and lumbosacral junction HARDWARE: None in the spine. PARASPINAL SOFT TISSUES: Normal. PELVIS: Not included in the field of view. SI joints intact. OTHER: No other significant finding. IMPRESSION: Degenerative changes at the lumbosacral junction. No acute fracture or malalignment Only 4 lumbar vertebral bodies are present TECHNICAL DOCUMENTATION: JOB ID: [id number] [employer]- All Rights Reserved Reading location - IP/workstation name: [email or web address]
[2017-11-14 12:05] VITALS: BP 135/70
== END 2017-11-14 12:05 | disposition home or self-care (01) ==
LOC: ER 10:02
DX: M25.512 Pain in left shoulder (principal); M54.42 Lumbago with sciatica, left side; F17.210 Nicotine dependence, cigarettes, uncomplicated; I10 Essential (primary) hypertension; Z88.0 Allergy status to penicillin; Z88.3 Allergy status to other anti-infective agents; Z87.442 Personal history of urinary calculi; Z90.49 Acquired absence of other specified parts of digestive tract; Z90.710 Acquired absence of both cervix and uterus
CPT/HCPCS: 99406; 99283; 96372; 72110; 73030; J1885; J1100

== ENCOUNTER 2018-02-20 13:53 | Emergency (ER) | payer SELFPAY ==
[2018-02-20 14:19] VITALS: BP 170/108
--- NOTE | 2018-02-20 15:01 | ER Document Report ---
ED Extremity Problem, Upper - General Chief Complaint: Shoulder Pain Stated Complaint: LEFT SHOULDER PAIN Time Seen by Provider: 02/20/18 14:30 Mode of Arrival: Ambulatory Information source: Patient Notes: 52-year-old female presents to ED for complaint of left shoulder pain since May 2017. She is crying during exam because she states that the pain is so bad. She states she has been using Tylenol and Motrin and trying to move it but the pain is so bad now she cannot move it. She denies any traumas. She states she was lifting some boxes at work in May. She states she been using BenGay Tylenol and Motrin. TRAVEL OUTSIDE OF THE [place] IN LAST 30 DAYS: No - HPI Patient complains to provider of: Left, Shoulder Onset: Other - May 2017 which is about 8 months ago Recent injury: No Where: Work - May 2017 Severity of pain: Severe Pain Level: 5 Associated symptoms: None Exacerbated by: Movement, Exertion Relieved by: Nothing Similar symptoms previously: Yes Recently seen / treated by doctor: No - Related Data Allergies/Adverse Reactions: ampicillin [Ampicillin] Allergy (Verified 02/20/18 13:54) cefoxitin sodium [From Mefoxin] Allergy (Verified 02/20/18 13:54) ciprofloxacin [From Cipro] Allergy (Verified 02/20/18 13:54) ciprofloxacin HCl [From Cipro] Allergy (Verified 02/20/18 13:54) erythromycin base [Erythromycin Base] Allergy (Verified 02/20/18 13:54) metronidazole [From Flagyl] Allergy (Verified 02/20/18 13:54) Metronidazole HCl [From Flagyl] Allergy (Verified 02/20/18 13:54) Penicillins Allergy (Verified 02/20/18 13:54) ranitidine HCl [From Zantac] Allergy (Verified 02/20/18 13:54) Past Medical History - General Information source: Patient - Social History Smoking Status: Current Every Day Smoker Cigarette use (# per day): Yes - 1/3 pack/day Smoking Education Provided: Yes - Woman Frequency of alcohol use: None Drug Abuse: None Lives with: Family Family History: Reviewed & Not Pertinent Patient has suicidal ideation: No Patient has homicidal ideation: No - Past Medical History Cardiac Medical History: Reports: Hx Hypertension Pulmonary Medical History: Reports: Hx Asthma EENT Medical History: Reports: None Neurological Medical History: Reports: Hx Migraine Endocrine Medical History: Reports: None Renal/ Medical History: Reports: Hx Kidney Stones Malignancy Medical History: Reports: None GI Medical History: Reports: None Musculoskeletal Medical History: Reports Hx Arthritis, Reports Hx Musculoskeletal Trauma Skin Medical History: Reports None Psychiatric Medical History: Reports: None Traumatic Medical History: Reports: None Infectious Medical History: Reports: None Past Surgical History: Reports: Hx Appendectomy, Hx Bowel Surgery - obstruction, Hx Cholecystectomy, Hx Hysterectomy - Immunizations Immunizations up to date: Yes Hx Diphtheria, Pertussis, Tetanus Vaccination: Yes Review of Systems - Review of Systems Constitutional: No symptoms reported EENT: No symptoms reported Cardiovascular: No symptoms reported Respiratory: No symptoms reported Gastrointestinal: No symptoms reported Genitourinary: No symptoms reported Female Genitourinary: No symptoms reported Musculoskeletal: Joint pain, Joint swelling, Muscle pain, Muscle stiffness Skin: No symptoms reported Hematologic/Lymphatic: No symptoms reported Neurological/Psychological: No symptoms reported -: Yes All other systems reviewed and negative Physical Exam - Vital signs Vitals: Temp Pulse Resp BP Pulse Ox 97.4 F 98 18 170/108 H 99 02/20/18 14:16 02/20/18 14:16 02/20/18 14:16 02/20/18 14:16 02/20/18 14:16 Interpretation: Normal - General General appearance: Appears well, Alert - HEENT Head: Normocephalic, Atraumatic Eyes: Normal Pupils: PERRL - Respiratory Respiratory status: No respiratory distress Chest status: Nontender Breath sounds: Normal Chest palpation: Normal - Cardiovascular Rhythm: Regular Heart sounds: Normal auscultation Murmur: No - Abdominal Inspection: Normal Distension: No distension Bowel sounds: Normal Tenderness: Nontender Organomegaly: No organomegaly - Back Back: Normal, Nontender - Extremities General upper extremity: Normal inspection, Normal color, Normal temperature General lower extremity: Normal inspection, Nontender, Normal color, Normal ROM, Normal temperature, Normal weight bearing. No: Ely's sign Shoulder: Tender, Limited ROM - due to pain - Neurological Neuro grossly intact: Yes Cognition: Normal Orientation: AAOx4 [place] Coma Scale Eye Opening: Spontaneous [place] Coma Scale Verbal: Oriented [place] Coma Scale Motor: Obeys Commands [place] Coma Scale Total: 15 Speech: Normal Motor strength normal: LUE, RUE, LLE, RLE Sensory: Normal - Psychological Associated symptoms: Normal affect, Normal mood - Skin Skin Temperature: Warm Skin Moisture: Dry Skin Color: Normal Course - Re-evaluation Re-evalutation: 02/20/18 16:05 While discussing x-ray results with patient she became very hysterical and yelling that she is already lost her job she does not want any pain medicine she does not want any names of doctors she does not want anything she just got to get out of here she is already lost her job she just has to get out of here. I explained to her that I was offering her a prescription for some pain medicine she said no she does not want that she just wants to leave. She states all her and help her me in a I just want to leave. Patient would not wait for her discharge instructions that would be written. I did give her instructions on ibuprofen and exercises but she would not wait for the written instructions. - Vital Signs Vital signs: Temp Pulse Resp BP Pulse Ox 97.4 F 98 18 170/108 H 99 02/20/18 14:16 02/20/18 14:16 02/20/18 14:16 02/20/18 14:16 02/20/18 14:16 - Diagnostic Test Radiology reviewed: Image reviewed, Reports reviewed Discharge - Discharge Clinical Impression: Chronic left shoulder pain Condition: Stable Disposition: HOME, SELF-CARE Additional Instructions: Patient was given instructions concerning her blood pressure, and her shoulder pain. She became angry while discussing instructions with her and stated she could not wait for her written instruction she was leaving right now. I explained to her that I was going to write her for a prescription for narcotics. She states no she does not want any narcotics she just wants some I to fix her shoulder. I explained to her that I was going to give her the name and number for memory care and orthopedics. She states she does not have a job right now and she can go to either 1 of them that I was supposed to fix her shoulder. Patient left the ER crying because we had not fixed her shoulder. Forms: Elevated Blood Pressure
--- NOTE | 2018-02-20 15:23 | RADIOLOGY REPORT (SQ) ---
EXAM DESCRIPTION: SHOULDER LEFT 2 OR MORE VIEWS COMPLETED DATE/TIME: 02/20/2018 3:08 pm REASON FOR STUDY: pain with any range of motion COMPARISON: None. NUMBER OF VIEWS: Three view. TECHNIQUE: Internal rotation, external rotation, and Y view images acquired of the left shoulder. LIMITATIONS: None. FINDINGS: MINERALIZATION: Normal. BONES: No acute fracture or dislocation. No worrisome bone lesions. No significant osteophytes. GLENOHUMERAL JOINT: No significant findings. ACROMIOCLAVICULAR JOINT: No large osteophytes. SOFT TISSUES: No calcifications. VISUALIZED RIBS, SPINE, AND LUNG: No other significant finding. OTHER: No other significant finding. IMPRESSION: NEGATIVE STUDY OF THE LEFT SHOULDER. NO EXPLANATION FOR PAIN. TECHNICAL DOCUMENTATION: JOB ID: [id number] [employer]- All Rights Reserved Reading location - IP/workstation name: [email or web address]
== END 2018-02-20 16:08 | disposition home or self-care (01) ==
LOC: ER 13:53
DX: M25.512 Pain in left shoulder (principal); G89.29 Other chronic pain; X50.9XXA Other and unspecified overexertion or strenuous movements or postures, initial encounter; F17.210 Nicotine dependence, cigarettes, uncomplicated; I10 Essential (primary) hypertension; J45.909 Unspecified asthma, uncomplicated
CPT/HCPCS: 99283

== ENCOUNTER 2018-02-21 09:06 | Emergency (ER) | payer SELFPAY ==
[2018-02-21 09:26] VITALS: BP 136/87
[2018-02-21] MEDS ORDERED: METHYLPREDNISOLONE ACETATE INJ 80 MG/1 ML VIAL IM ONE (10:06)
--- NOTE | 2018-02-21 10:08 | ER Document Report ---
ED General - General Chief Complaint: Shoulder Pain Stated Complaint: LEFT SHOULDER PAIN Time Seen by Provider: 02/21/18 09:40 Notes: Patient is a 52-year-old female that presents to the emergency department for chief complaint of left shoulder pain. Patient states she is been dealing with left shoulder pain since May of this year, it just seems like it is getting worse and not any better over the period of time. She states she has been using warm compresses and ice packs and heating pads and taking Motrin without much relief of her pain. 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 She describes the pain as a constant aching sensation in her shoulder with worse with range of motion of the left side she currently rates the pain as a 5 out of 10. She has not seen a primary care physician or an orthopedic surgeon to follow-up on this, she has not had physical therapy, or any specific treatments for her shoulder. She denies any recent falls or traumatic injuries. Past Medical History: Denies chronic medical conditions Past Surgical History: Denies surgical history Social History: Denies current tobacco, alcohol or drug use. Family History: Reviewed and noncontributory for presenting illness Allergies: Reviewed, see documented allergy list. REVIEW OF SYSTEMS: Other than noted above, the 12 point review of systems was reviewed with the patient and were negative, all pertinent findings are included in the HPI. PHYSICAL EXAMINATION: Vital signs reviewed, nursing noted reviewed. GENERAL: Well-appearing, well-nourished and in no acute distress. HEAD: Atraumatic, normocephalic. EYES: Eyes appear normal, sclera anicteric, conjunctiva are normal. ENT: Moist mucous membranes. NECK: Normal range of motion, supple without lymphadenopathy LUNGS: Breath sounds clear to auscultation bilaterally and equal. No wheezes rales or rhonchi. HEART: Regular rate and rhythm without murmurs EXTREMITIES: Left shoulder: Patient has positive Rojo and empty can testing, of the left shoulder, she also has tenderness to palpation along the supraspinatus, and pain with internal and external rotation of the shoulder joint, there is no joint effusion appreciated, or erythema noted, she also has tenderness over the AC joint of the left shoulder. The rest of her extremity exam is grossly unremarkable. Nontender, elsewhere, and good range of motion. NEUROLOGICAL: No focal neurological deficits. Moves all extremities spontaneously Motor and sensory grossly intact on exam. PSYCH: Normal mood, normal affect. SKIN: Warm, Dry, normal turgor, no rashes or lesions noted on exposed skin TRAVEL OUTSIDE OF THE [place] IN LAST 30 DAYS: No - Related Data Allergies/Adverse Reactions: ampicillin [Ampicillin] Allergy (Verified 02/21/18 09:09) cefoxitin sodium [From Mefoxin] Allergy (Verified 02/21/18 09:09) ciprofloxacin [From Cipro] Allergy (Verified 02/21/18 09:09) ciprofloxacin HCl [From Cipro] Allergy (Verified 02/21/18 09:09) erythromycin base [Erythromycin Base] Allergy (Verified 02/21/18 09:09) metronidazole [From Flagyl] Allergy (Verified 02/21/18 09:09) Metronidazole HCl [From Flagyl] Allergy (Verified 02/21/18 09:09) Penicillins Allergy (Verified 02/21/18 09:09) ranitidine HCl [From Zantac] Allergy (Verified 02/21/18 09:09) Past Medical History - Social History Smoking Status: Unknown if Ever Smoked Family History: Reviewed & Not Pertinent Patient has suicidal ideation: No Patient has homicidal ideation: No - Past Medical History Cardiac Medical History: Reports: Hx Hypertension Pulmonary Medical History: Reports: Hx Asthma Neurological Medical History: Reports: Hx Migraine Renal/ Medical History: Reports: Hx Kidney Stones. Denies: Hx Peritoneal Dialysis Musculoskeletal Medical History: Reports Hx Arthritis, Reports Hx Musculoskeletal Trauma Past Surgical History: Reports: Hx Appendectomy, Hx Bowel Surgery - obstruction, Hx Cholecystectomy, Hx Hysterectomy - Immunizations Immunizations up to date: Yes Hx Diphtheria, Pertussis, Tetanus Vaccination: Yes Physical Exam - Vital signs Vitals: Temp Pulse Resp BP Pulse Ox 98.2 F 79 16 136/87 H 97 02/21/18 09:25 02/21/18 09:25 02/21/18 09:25 02/21/18 09:25 02/21/18 09:25 Course - Re-evaluation Re-evalutation: Patient seen and examined vital signs reviewed. Patient was evaluated and treated as appropriate for the patient's presenting symptoms and complaint, with consideration of any critical or life threatening conditions that may be associated with their obtained history and exam as noted above. Patient was treated with IM Depo-Medrol, to treat what appears to be rotator cuff syndrome, will discharge her home on Mobic to see if this will help, advised her not to take any further Motrin or other NSAIDs, and given her referral to orthopedic surgery. She was placed in a sling to help with her pain as well. Patient was agreeable to this plan of care and discharged home. Plan of care was discussed with the patient at this point, after careful consid eration I feel that that patient can be discharged from the emergency department, the patient was educated treatments and reasons to return to the emergency department based on their presumed diagnosis as noted above, they were advised to followup with a primary care physician in 2-3 days. Patient was agreeable to plan of care. *Note is created using voice recognition software and may contain spelling, syntax or grammatical errors. - Vital Signs Vital signs: Temp Pulse Resp BP Pulse Ox 98.2 F 79 16 136/87 H 97 02/21/18 09:25 02/21/18 09:25 02/21/18 09:25 02/21/18 09:25 02/21/18 09:25 Procedures - Immobilization Left Shoulder Pre-Proc Neuro Vasc Exam: Normal Immobilizer type: Sling Performed by: RN Post-Proc Neuro Vasc Exam: Normal Discharge - Discharge Clinical Impression: Rotator cuff syndrome of left shoulder Condition: Stable Disposition: HOME, SELF-CARE Instructions: Rotator Cuff Injury ([facility]) Additional Instructions: Please take the prescribed medication as directed, you should also follow-up with orthopedic surgery, within the next 3-5 days, as he may benefit from physical therapy and they can help you set this up, you could also do this through her primary care physician, which she would have to establish with. Prescriptions: Meloxicam [Mobic] 15 mg PO DAILY #20 tablet Referrals: RYNE NELSON MD [ACTIVE STAFF] - Follow up in 3-5 days (ORTHOPEDIC SURGERY )
== END 2018-02-21 10:47 | disposition home or self-care (01) ==
LOC: ER 09:06
DX: M75.102 Unspecified rotator cuff tear or rupture of left shoulder, not specified as traumatic (principal); M25.512 Pain in left shoulder; I10 Essential (primary) hypertension; J45.909 Unspecified asthma, uncomplicated; Z88.0 Allergy status to penicillin; Z88.1 Allergy status to other antibiotic agents; Z88.8 Allergy status to other drugs, medicaments and biological substances
CPT/HCPCS: 99283; 96372; J1040

== ENCOUNTER 2018-04-23 21:28 | Emergency (ER) | payer SELFPAY ==
[2018-04-23] MEDS ORDERED: TRANEXAMIC ACID INJ/PF 1,000 MG/10 ML SDV IV ONE ×2 (22:00→22:33)
--- NOTE | 2018-04-23 22:07 | ER Document Report ---
ED Head/Face/Scalp Injury - General Chief Complaint: Head Injury Stated Complaint: HEAD INJURY Time Seen by Provider: 04/23/18 22:07 Primary Care Provider: MACHELLE LOPEZ DO [ASSOCIATE] - Follow up as needed Mode of Arrival: Stretcher Information source: Patient, Relative Notes: HISTORY OF PRESENT ILLNESS: Patient is a 53-year-old female with a past medical history of chronic headaches who presents with mechanical fall from the second step at home where she fell forward and hit the right side of her face. Location: Right side of the forehead above the eye Onset: Sudden before arrival Provocation: "My right knee gave out" Quality: Aching, throbbing Radiation: None Severity: Mild to moderate Timing: Constant Associated symptoms: No fevers or chills, no confusion/disorientation, no vision changes, no weakness of the extremities REVIEW OF SYSTEMS: CONSTITUTIONAL : Denies fever or chills, no sweats. Denies recent illness. HEENT: Positive for right forehead laceration. Denies eye, ear, throat, or mouth pain or symptoms. Denies nasal or sinus congestion. CARDIOVASCULAR: Denies chest pain. RESPIRATORY: Denies cough, cold, or chest congestion. Denies shortness of breath, difficulty breathing, or wheezing. GASTROINTESTINAL: Denies abdominal pain. Denies nausea, vomiting, or diarrhea. Denies constipation. GENITOURINARY: Denies difficulty urinating, painful urination, burning, frequency, or blood in urine. Denies vaginal bleeding, abnormal or irregular periods. MUSCULOSKELETAL: Denies neck or back pain or joint pain or swelling. SKIN: Denies rash or skin lesions. HEMATOLOGIC : Denies easy bruising or bleeding. LYMPHATIC: Denies swollen, enlarged glands. NEUROLOGICAL: Denies altered mental status or loss of consciousness. Denies h eadache. Denies weakness or paralysis or loss of use of either side. Denies problems with gait or speech. Denies sensory or motor loss. PSYCHIATRIC: Denies anxiety or stress or depression. All other systems reviewed and negative. PHYSICAL EXAMINATION: GENERAL: Appears in pain but in no acute distress, well-nourished. HEAD: 3 cm linear laceration above the right eyebrow. No scalp deformity, depression, or crepitance. EYES: Pupils are 3 mm and equal/round/reactive to light, extraocular movements intact, sclera anicteric, conjunctiva are normal. ENT: Nares patent bilaterally, oropharynx clear without exudates or palatal petechia. Moist mucous membranes. No tonsil hypertrophy. NECK: Normal range of motion, supple without lymphadenopathy. LUNGS: Breath sounds present, equal, and clear to auscultation bilaterally. No wheezes, rales, or rhonchi. HEART: Regular rate and rhythm without murmurs, rubs, or gallops. 2+ peripheral pulses. Normal capillary refill. ABDOMEN: Soft, nontender, nondistended. Normoactive bowel sounds. No guarding, no rebound. No masses appreciated. BACK: Normal contour, no midline tenderness. Rectal exam deferred. PELVC: Deferred. EXTREMITIES: Normal range of motion, no pitting or edema. No cyanosis. NEUROLOGICAL: No focal neurological deficits. Moves all extremities spontaneously and on command. PSYCH: Normal mood, normal affect. No suicidal thoughts/ideations. No homocidal thoughts/ideations. No hallucinations. SKIN: Warm, dry, normal turgor, no rashes or lesions noted. ASSESSMENT AND PLAN: This patient is a 53-year-old female who presents with mechanical fall with laceration over the right eye that is traumatic in nature. 1. Will obtain CT scan of the head. 2. Will suture repair laceration and reassess. TRAVEL OUTSIDE OF THE [place] IN LAST 30 DAYS: No - Related Data Allergies/Adverse Reactions: ampicillin [Ampicillin] Allergy (Verified 02/21/18 09:09) cefoxitin sodium [From Mefoxin] Allergy (Verified 02/21/18 09:09) ciprofloxacin [From Cipro] Allergy (Verified 02/21/18 09:09) ciprofloxacin HCl [From Cipro] Allergy (Verified 02/21/18 09:09) erythromycin base [Erythromycin Base] Allergy (Verified 02/21/18 09:09) metronidazole [From Flagyl] Allergy (Verified 02/21/18 09:09) Metronidazole HCl [From Flagyl] Allergy (Verified 02/21/18 09:09) Penicillins Allergy (Verified 02/21/18 09:09) ranitidine HCl [From Zantac] Allergy (Verified 02/21/18 09:09) Past Medical History - General Information source: Patient, Relative - Social History Smoking Status: Never Smoker Chew tobacco use (# tins/day): No Frequency of alcohol use: Occasional Drug Abuse: None Lives with: Family Family History: Reviewed & Not Pertinent Patient has suicidal ideation: No Patient has homicidal ideation: No - Past Medical History Cardiac Medical History: Reports: Hx Hypertension Pulmonary Medical History: Reports: Hx Asthma EENT Medical History: Reports: None Neurological Medical History: Reports: Hx Migraine Endocrine Medical History: Reports: None Renal/ Medical History: Reports: Hx Kidney Stones. Denies: Hx Peritoneal Dialysis Malignancy Medical History: Reports: None GI Medical History: Reports: None Musculoskeletal Medical History: Reports Hx Arthritis, Reports Hx Musculoskeletal Trauma Skin Medical History: Reports None Psychiatric Medical History: Reports: None Traumatic Medical History: Reports: None Infectious Medical History: Reports: None Past Surgical History: Reports: Hx Appendectomy, Hx Bowel Surgery - obstruction, Hx Cholecystectomy, Hx Hysterectomy - Immunizations Immunizations up to date: Yes Hx Diphtheria, Pertussis, Tetanus Vaccination: Yes Physical Exam - Vital signs Vitals: Temp Pulse Resp BP Pulse Ox 98.3 F 92 16 157/85 H 97 04/23/18 21:38 04/23/18 21:38 04/23/18 21:38 04/23/18 21:38 04/23/18 21:38 Course - Re-evaluation Re-evalutation: 04/24/18 03:23 CT scan of the head is negative for intracranial pathology. Patient has had laceration repaired, please see procedure note for details. She will be discharged home with return precautions and follow-up. Patient and her voiced both understanding and agreeing with the plan. - Vital Signs Vital signs: Temp Pulse Resp BP Pulse Ox 98.1 F 70 16 119/69 96 04/24/18 04:00 04/24/18 04:00 04/24/18 04:00 04/24/18 04:00 04/24/18 04:00 - Diagnostic Test Radiology reviewed: Image reviewed, Reports reviewed Procedures - Laceration/Wound Repair Right Upper Head Time completed: 01:15 Wound length (cm): 3 Wound's Depth, Shape: Linear, Flap Laceration pre-procedure: Chloraprep applied Anesthetic type: 1% Lidocaine w/epi Volume Anesthetic (mLs): 20 Wound explored: Clean Wound Debrided: Minimal Wound Repaired With: Sutures Suture Size/Type: 4:0, Ethilon Number of Sutures: 3 Layer Closure?: Yes - Two 30 Vicryl for hemostasis Post-procedure NV exam normal: Yes Complications: No Discharge - Discharge Clinical Impression: Facial laceration Qualifiers: Encounter type: initial encounter Qualified Code(s): S01.81XA - Laceration without foreign body of other part of head, initial encounter Condition: Good Disposition: HOME, SELF-CARE Instructions: Laceration Care ([facility]) Additional Instructions: You have been evaluated in the Emergency Department for falling and hitting her face, causing a laceration. While here, you had a CAT scan performed that was normal and it is now safe to be discharged home. You also had her laceration repaired with stitches, please have these removed in approximately 10 days and take your antibiotics as prescribed. Please follow-up with your primary physician as instructed in 7-10 days. Return to the Emergency Department if you experience high fevers, difficulty walking, vision changes, uncontrollable headaches, or any other concerning symptoms. Prescriptions: Doxycycline Hyclate 100 mg PO BID #14 capsule Forms: Return to Work Referrals: MACHELLE LOPEZ DO [ASSOCIATE] - Follow up as needed Print Language: Com[place]an
--- NOTE | 2018-04-23 22:26 | RADIOLOGY REPORT (SQ) ---
EXAM DESCRIPTION: CT HEAD WITHOUT IV CONTRAST COMPLETED DATE/TME: 04/23/2018 00:00 Soft tissue scalp trauma is noted. HISTORY: 53 years, Female, fall This exam was performed according to our departmental dose-optimization program which includes automated exposure control, adjustment of the mA and/or kVp according to patient size and/or use of iterative reconstruction technique where applicable. FINDINGS: No acute intracranial hemorrhage, mass effect or midline shift. No extra-axial fluid collections. Ventricles and subarachnoid spaces are preserved. Bush-white matter differentiation is preserved. Visualized paranasal sinuses and the mastoid air cells are clear. The skull is intact. Mild right periorbital and right frontal soft tissue scalp trauma is noted. IMPRESSION: No acute intracranial hemorrhage.
[2018-04-23] MEDS ORDERED: LIDOCAINE 1%/EPINEPHRINE INJ 20 ML VIAL ONE (22:42)
[2018-04-23] MEDS ORDERED: LORAZEPAM INJ 2 MG/1 ML VIAL IM ONE (22:54)
[2018-04-24] MEDS ORDERED: LIDOCAINE 1%/EPINEPHRINE INJ 20 ML VIAL INJ ONE (01:13)
[2018-04-24] MEDS ORDERED: ACETAMINOPHEN 325 MG TABLET PO ONE (02:10)
[2018-04-24 04:02] VITALS: BP 119/69
== END 2018-04-24 04:02 | disposition home or self-care (01) ==
LOC: ER 21:28
DX: S01.111A Laceration without foreign body of right eyelid and periocular area, initial encounter (principal); W10.9XXA Fall (on) (from) unspecified stairs and steps, initial encounter; Y92.009 Unspecified place in unspecified non-institutional (private) residence as the place of occurrence of the external cause; Z88.3 Allergy status to other anti-infective agents; Z88.0 Allergy status to penicillin
CPT/HCPCS: 99283; 96372; 70450; 12052; J3490 ×2; J2060

== ENCOUNTER 2018-09-27 12:35 | Emergency (ER) | payer SELFPAY ==
--- NOTE | 2018-09-27 14:21 | ER Document Report ---
ED Medical Screen (RME) - General Chief Complaint: Headache Stated Complaint: MIGRAINE Time Seen by Provider: 09/27/18 14:20 Mode of Arrival: Ambulatory Information source: Patient Notes: Patient is a 53-year-old female with past medical history of migraines presenting to the emergency department chief complaint of headache that began 4 days ago. She reports headache is located on the right side of her head over the temporal area. She reports associated nausea with vomiting. She does report that she had a laceration to this area several months ago she has had increased headaches since that time. She is also out of her blood pressure medications. She is asking for refill of her HCTZ. Exam: Patient alert, oriented, rocking back and forth in the chair in moderate distress. No focal neurological deficits noted. I have greeted and performed a rapid initial assessment of this patient. A comprehensive ED assessment and evaluation of the patient, analysis of test results and completion of the medical decision making process will be conducted by additional ED providers. I have specifically instructed the patient or family members with the patient to immediately return to any nursing staff should anything change in the patient's condition or with their chief complaint. This medical record was dictated with voice recognizing software. There may be grammatical, syntax errors that are unintended. TRAVEL OUTSIDE OF THE [place] IN LAST 30 DAYS: No - Related Data Allergies/Adverse Reactions: ampicillin [Ampicillin] Allergy (Verified 09/27/18 14:04) cefoxitin sodium [From Mefoxin] Allergy (Verified 09/27/18 14:04) ciprofloxacin [From Cipro] Allergy (Verified 09/27/18 14:04) ciprofloxacin HCl [From Cipro] Allergy (Verified 09/27/18 14:04) erythromycin base [Erythromycin Base] Allergy (Verified 09/27/18 14:04) metronidazole [From Flagyl] Allergy (Verified 09/27/18 14:04) Metronidazole HCl [From Flagyl] Allergy (Verified 09/27/18 14:04) Penicillins Allergy (Verified 09/27/18 14:04) ranitidine HCl [From Zantac] Allergy (Verified 09/27/18 14:04) Past Medical History - Social History Chew tobacco use (# tins/day): No Frequency of alcohol use: None Drug Abuse: None - Past Medical History Cardiac Medical History: Reports: Hx Hypertension Pulmonary Medical History: Reports: Hx Asthma Neurological Medical History: Reports: Hx Migraine Renal/ Medical History: Reports: Hx Kidney Stones. Denies: Hx Peritoneal Dialysis Musculoskeltal Medical History: Reports Hx Arthritis, Reports Hx Musculoskeletal Trauma Past Surgical History: Reports: Hx Appendectomy, Hx Bowel Surgery - obstruction, Hx Cholecystectomy, Hx Hysterectomy - Immunizations Immunizations up to date: Yes Hx Diphtheria, Pertussis, Tetanus Vaccination: Yes Physical Exam - Vital signs Vitals: Temp Pulse Resp BP Pulse Ox 98.4 F 85 18 152/92 H 96 09/27/18 12:49 09/27/18 12:49 09/27/18 12:49 09/27/18 12:49 09/27/18 12:49 Course - Vital Signs Vital signs: Temp Pulse Resp BP Pulse Ox 98.4 F 85 18 152/92 H 96 09/27/18 12:49 09/27/18 12:49 09/27/18 12:49 09/27/18 12:49 09/27/18 12:49
[2018-09-27] MEDS ORDERED: PROMETHAZINE HCL INJ 25 MG/1 ML VIAL IV ONE (14:24)
[2018-09-27] MEDS ORDERED: DIPHENHYDRAMINE HCL 50 MG/ML VIAL IV ONE (14:25)
[2018-09-27] MEDS ORDERED: KETOROLAC TROMETHAMINE INJ/PF 30 MG/1 ML SDV IV ONE (14:25)
--- NOTE | 2018-09-27 17:48 | ER Document Report ---
ED Headache - General Chief Complaint: Headache Stated Complaint: MIGRAINE Time Seen by Provider: 09/27/18 14:20 Primary Care Provider: MINH KABA JR, MD [Primary Care Provider] - Follow up as needed Mode of Arrival: Ambulatory Information source: Patient Notes: 53-year-old female presented to ED for complaint of migraines. She states she has had a headache for the last 4 days. She states she has been taken ibuprofen but she took it last last night. She states that she got injured in this exact same area that is hurting in May and she had a CT at that time that was negative but the pain has not really gone away. She states that this headache is been for about 4 days. She states she is also out of her blood pressure medicine and needs a refill of her hydrochlorothiazide. Patient is alert oriented respirations regular and unlabored speaking in full sentences. She states her pain was 5 out of 5 but now is about a 3 out of 5 after she got Phenergan 12.5 mg Toradol 15 mg and Benadryl 25 mg. TRAVEL OUTSIDE OF THE [place] IN LAST 30 DAYS: No - HPI Patient complains to provider of: Headache Patient reports: Hx chronic headaches Onset: Other - 4 days ago Onset was: Gradual Timing: Still present Quality of pain: Pressure, Throbbing Severity: Moderate Pain Level: 4 - Related Data Allergies/Adverse Reactions: ampicillin [Ampicillin] Allergy (Verified 09/27/18 14:04) cefoxitin sodium [From Mefoxin] Allergy (Verified 09/27/18 14:04) ciprofloxacin [From Cipro] Allergy (Verified 09/27/18 14:04) ciprofloxacin HCl [From Cipro] Allergy (Verified 09/27/18 14:04) erythromycin base [Erythromycin Base] Allergy (Verified 09/27/18 14:04) metronidazole [From Flagyl] Allergy (Verified 09/27/18 14:04) Metronidazole HCl [From Flagyl] Allergy (Verified 09/27/18 14:04) Penicillins Allergy (Verified 09/27/18 14:04) ranitidine HCl [From Zantac] Allergy (Verified 09/27/18 14:04) Past Medical History - General Information source: Patient - Social History Smoking Status: Current Every Day Smoker Cigarette use (# per day): Yes - 2 to 3 cigarettes a day Chew tobacco use (# tins/day): No Smoking Education Provided: Yes - 4 minutes Frequency of alcohol use: None Drug Abuse: None Lives with: Friend - Roommates Family History: Reviewed & Not Pertinent Patient has suicidal ideation: No Patient has homicidal ideation: No - Past Medical History Cardiac Medical History: Reports: Hx Hypertension Pulmonary Medical History: Reports: Hx Asthma EENT Medical History: Reports: None Neurological Medical History: Reports: Hx Migraine Endocrine Medical History: Reports: None Renal/ Medical History: Reports: Hx Kidney Stones Malignancy Medical History: Reports: None GI Medical History: Reports: None Musculoskeletal Medical History: Reports Hx Arthritis, Reports Hx Musculoskeletal Trauma Skin Medical History: Reports None Psychiatric Medical History: Reports: None Traumatic Medical History: Reports: None Infectious Medical History: Reports: None Past Surgical History: Reports: Hx Appendectomy, Hx Bowel Surgery - obstruction colon Resection, Hx Cholecystectomy, Hx Hysterectomy - Immunizations Immunizations up to date: Yes Hx Diphtheria, Pertussis, Tetanus Vaccination: Yes Review of Systems - Review of Systems Constitutional: No symptoms reported EENT: No symptoms reported Cardiovascular: No symptoms reported Respiratory: No symptoms reported Gastrointestinal: No symptoms reported Genitourinary: No symptoms reported Female Genitourinary: No symptoms reported Musculoskeletal: No symptoms reported Skin: No symptoms reported Hematologic/Lymphatic: No symptoms reported Neurological/Psychological: No symptoms reported -: Yes All other systems reviewed and negative Physical Exam - Vital signs Vitals: Temp Pulse Resp BP Pulse Ox 98.4 F 85 18 152/92 H 96 09/27/18 12:49 09/27/18 12:49 09/27/18 12:49 09/27/18 12:49 09/27/18 12:49 Interpretation: Normal - General General appearance: Appears well, Alert - HEENT Head: Normocephalic, Atraumatic Eyes: Normal Pupils: PERRL Ears: Normal External canal: Normal Tympanic membrane: Normal Sinus: Normal Nasal: Normal Mouth/Lips: Normal Mucous membranes: Normal Pharynx: Normal Neck: Normal - Respiratory Respiratory status: No respiratory distress Chest status: Nontender Breath sounds: Normal Chest palpation: Normal - Cardiovascular Rhythm: Regular Heart sounds: Normal auscultation Murmur: No - Abdominal Inspection: Normal Distension: No distension Bowel sounds: Normal Tenderness: Nontender Organomegaly: No organomegaly - Back Back: Normal, Nontender - Extremities General upper extremity: Normal inspection, Nontender, Normal color, Normal ROM, Normal temperature General lower extremity: Normal inspection, Nontender, Normal color, Normal ROM, Normal temperature, Normal weight bearing. No: Ely's sign - Neurological Neuro grossly intact: Yes Cognition: Normal Orientation: AAOx4 [place] Coma Scale Eye Opening: Spontaneous Sudeep Coma Scale Verbal: Oriented Sudeep Coma Scale Motor: Obeys Commands [place] Coma Scale Total: 15 Speech: Normal Cranial nerves: Normal Cerebellar coordination: Normal Motor strength normal: LUE, RUE, LLE, RLE Additional motor exam normals: Equal finisher machine Babinski reflex: Normal (flexor plantar) Sensory: Normal Biceps - Reflex grade: 2 = Normal Triceps - Reflex grade: 2 = Normal Brachioradialis - Reflex grade: 2 = Normal Knee - Reflex grade: 2 = Normal - Psychological Associated symptoms: Normal affect, Normal mood - Skin Skin Temperature: Warm Skin Moisture: Dry Skin Color: Normal Course - Re-evaluation Re-evalutation: 09/28/18 03:13 After performing a Medical Screening Examination, I estimate there is LOW risk for ACUTE GLAUCOMA, TEMPORAL ARTERITIS, MENINGITIS, INCRANIAL HEMORRHAGE, or ISCHEMIC STROKE thus I consider the discharge disposition reasonable. I have reevaluated this patient multiple times and no significant life threatening changes are noted. The patient and I have discussed the diagnosis and risks, and we agree with discharging home with close follow-up with the understanding that symptoms and presentations can change. We also discussed returning to the Emergency Department immediately if new or worsening symptoms occur. We have discussed the symptoms which are most concerning (e.g., changing or worsening symptoms, new numbness or weakness, vomiting, fever) that necessitate immediate return. - Vital Signs Vital signs: Temp Pulse Resp BP Pulse Ox 98.0 F 73 18 138/98 H 97 09/27/18 18:16 09/27/18 18:10 09/27/18 12:49 09/27/18 18:10 09/27/18 18:10 - Diagnostic Test Radiology reviewed: Image reviewed, Reports reviewed Discharge - Discharge Clinical Impression: Headache Qualifiers: Headache type: unspecified Headache chronicity pattern: unspecified pattern Intractability: not intractable Qualified Code(s): R51 - Headache Nausea & vomiting Qualifiers: Vomiting type: unspecified Vomiting Intractability: non-intractable Qualified Code(s): R11.2 - Nausea with vomiting, unspecified Condition: Stable Disposition: HOME, SELF-CARE Additional Instructions: HEADACHE: The physician does not feel that the headache you are experiencing has a serious underlying cause. Most headaches are due to emotional stress, with resultant muscle tension (tension headache). Occasionally, headaches are secondary to changes in the blood vessels of the scalp (vascular headache and migraine headache). Sometimes, a headache is the first symptom of another developing illness, such as a viral infection. You have no evidence of stroke, bleeding, meningitis, or other serious cause of your headache. The treatment of headaches varies with the severity and cause of the pain. Not all headaches need pain shots. In fact, there is evidence that using narcotics for headaches may make them worse in the long run. The physician will determine the therapy that's in your best interest. If you develop a fever, if the headache is different from any you've previously experienced, or if the headache progressively worsens, then call your physician at once or go to the emergency room. USE OF DIPHENHYDRAMINE: Diphenhydramine (Benadryl) is an antihistamine and has been recommended to help treat your headache and to prevent side effects of other medications used to treat headaches. The medication can be repeated four times daily. Age Elixir (12.5 mg/tsp) 25 mg pill adult 1-2 tabs Antihistamines may cause drowsiness, especially with the first dose. Do not operate machinery or drive while under the effects of the medication. Do not combine the medication with alcohol, or with any other medication without talking to your doctor. ANTINAUSEA MEDICATION: You have been given a medication to suppress nausea and vomiting. This type of medication can be given as a shot, pill, or suppository. It will usually last for many hours. Pills and shots usually last six to eight hours, suppositories last about 12 hours. For the typical illness, only one or two doses of the medication may be necessary. Mild lightheadedness may occur. This type of medicine can cause drowsiness. Do not drive or operate dangerous machinery while under its influence. Do not mix with alcohol. See your doctor at once if you have muscle spasms or tightness, or uncontrollable motions (particularly of the neck, mouth, or jaw). Persistent vom iting or severe lightheadedness should also be evaluated by the physician. TORADOL INJECTION: You have been given an injection of ketorolac tromethamine (Toradol). This is an excellent, safe drug for pain control. It also has potent antiinflammatory action. You should have significant pain relief within about one hour. Toradol is not addicting and is non-sedating. It does not interfere with driving or work. Call or return if you develop itching, hives, shortness of breath, or rash. Your blood pressure medication was refilled today. Please follow-up with your primary care doctor before this prescription runs out so that she can get a refill. Hydrochlorothiazide Hydrochlorothiazide is a diuretic medication. Diuretics are often called "water pills." The medicine flushes excess salt and water from the body. Diuretics are used for fluid retention (such as heart failure, cirrhosis, or lung disease) and for blood pressure control. Often hydrochlorothiazide is combined with other medicines in the same pill. Most patients prefer to take the medicine in the morning. Hydrochlorothiazide makes extra urine, which can be a problem if you take the pill at night. Diuretics make you lose potassium. Sometimes a good diet with plenty of fruit is enough to replace it. Sometimes a potassium supplement is necessary. Or, hydrochlorothiazide may be combined with medicines that prevent potassium loss. We usually recommend a blood potassium test in a few weeks. Contact your doctor if you develop extreme fatigue, muscle weakness, lethar gy, confusion, or palpitations. FOLLOW-UP CARE: If you have been referred to a physician for follow-up care, call the physicians office for an appointment as you were instructed or within the next two days. If you experience worsening or a significant change in your symptoms, notify the physician immediately or return to the Emergency Department at any time for re-evaluation. Prescriptions: Hydrochlorothiazide [Hydrodiuril 25 mg Tablet] 25 mg PO QAM #30 tablet Promethazine HCl [Phenergan 25 mg Tablet] 25 mg PO Q6H PRN #15 tablet PRN Reason: Forms: Elevated Blood Pressure, Smoking Cessation Education Referrals: MINH KABA JR, MD [Primary Care Provider] - Follow up as needed
--- NOTE | 2018-09-27 18:03 | RADIOLOGY REPORT (SQ) ---
EXAM DESCRIPTION: CT HEAD WITHOUT COMPLETED DATE/TIME: 09/27/2018 5:36 pm REASON FOR STUDY: pain in site of injury in june COMPARISON: 04/23/2018 TECHNIQUE: Axial images acquired through the brain without intravenous contrast. Images reviewed wi th bone, brain and subdural windows. Additional sagittal and coronal reconstructions were generated. Images stored on PACS. All CT scanners at this facility use dose modulation, iterative reconstruction, and/or weight based d osing when appropriate to reduce radiation dose to as low as reasonably achievable (ALARA). [facility]: Dose Right [facility]: CareDose [facility]: Dose Right [facility]: Teradose 4D [facility]: [employer] RADIATION DOSE: CT Rad equipment meets quality standard of care and radiation dose reduction techniq ues were employed. CTDIvol: 53.2 mGy. DLP: 1070 mGy-cm. mGy. LIMITATIONS: None. FINDINGS: VENTRICLES: Normal size and contour. CEREBRUM: No masses. No hemorrhage. No midline shift. No evidence for acute infarction. Normal gra y/white matter differentiation. No areas of low density in the white matter. CEREBELLUM: No masses. No hemorrhage. No alteration of density. No evidence for acute infarction. EXTRAAXIAL SPACES: No fluid collections. No masses. ORBITS AND GLOBE: No intra- or extraconal masses. Normal contour of globe without masses. CALVARIUM: No fracture. PARANASAL SINUSES: No fluid or mucosal thickening. SOFT TISSUES: No mass or hematoma. OTHER: No other significant finding. IMPRESSION: No acute intracranial pathology. EVIDENCE OF ACUTE STROKE: NO. COMMENT: Quality ID # [id number]: Final reports with documentation of one or more dose reduction techniques (e.g., Automated exposure control, adjustment of the mA and/or kV according to patient size, use of iterative reconstruction technique) TECHNICAL DOCUMENTATION: JOB ID: [id number] [employer]- All Rights Reserved Reading location - IP/workstation name: [email or web address]
[2018-09-27 18:15] VITALS: BP 138/98
== END 2018-09-27 18:19 | disposition home or self-care (01) ==
LOC: ER 12:35
DX: R51 Headache (principal); R11.2 Nausea with vomiting, unspecified; F17.210 Nicotine dependence, cigarettes, uncomplicated; Z71.6 Tobacco abuse counseling; Z86.69 Personal history of other diseases of the nervous system and sense organs; Z88.0 Allergy status to penicillin; Z88.1 Allergy status to other antibiotic agents; Z88.8 Allergy status to other drugs, medicaments and biological substances
CPT/HCPCS: 99406; 99283; 96374; 96375; 70450; J1200; J1885; J2550

== ENCOUNTER 2019-03-20 07:33 | Emergency (ER) | payer SELFPAY ==
[2019-03-20] MEDS ORDERED: NORMAL SALINE 1000 ML 1,000 ML IV ONE ×2 (08:18→08:39)
[2019-03-20] MEDS ORDERED: KETOROLAC TROMETHAMINE INJ/PF 30 MG/1 ML SDV IV ONE (08:39)
[2019-03-20] MEDS ORDERED: METOCLOPRAMIDE HCL INJ/PF 10 MG/2 ML SDV IV ONE (08:39)
[2019-03-20 08:44] LABS: ABSOLUTE EOSINOPHILS # (AUTO) 0.2 10^3/uL (0.0-0.6); ABSOLUTE LYMPHOCYTES (AUTO) 2.3 10^3/uL (0.5-4.7); ABSOLUTE MONOCYTES (AUTO) 0.6 10^3/uL (0.1-1.4); ABSOLUTE NEUT (AUTO) 3.6 10^3/uL (1.7-8.2); BASOPHILS % (AUTO) 0.7 % (0-2); EOSINOPHILS % (AUTO) 2.6 % (0-6); HEMATOCRIT 34.5 % (36.0-47.0); HEMOGLOBIN 11.7 g/dL (12.0-15.5); LYMPHOCYTES % (AUTO) 34.1 % (13-45); MEAN CORPUSCULAR HEMOGLOBIN 25.3 pg (27.0-33.4); MEAN CORPUSCULAR HGB CONC 33.9 g/dL (32.0-36.0); MEAN CORPUSCULAR VOLUME 75 fl (80-97); MONOCYTES % (AUTO) 8.6 % (3-13); PLATELET COUNT 315 10^3/uL (150-450); RED BLOOD COUNT 4.62 10^6/uL (3.72-5.28); TOTAL CELLS COUNTED % (AUTO) 100 %; WHITE BLOOD COUNT 6.8 10^3/uL (4.0-10.5)
[2019-03-20 09:01] LABS: ALBUMIN 4.3 g/dL (3.5-5.0); ALKALINE PHOSPHATASE 99 U/L (38-126); ANION GAP 7 (5-19); ASPARTATE AMINO TRANSFERASE 35 U/L (14-36); BILIRUBIN,TOTAL 0.4 mg/dL (0.2-1.3); BLOOD UREA NITROGEN 14 mg/dL (7-20); CALCIUM 9.3 mg/dL (8.4-10.2); CARBON DIOXIDE 26 mmol/L (22-30); CHLORIDE 108 mmol/L (98-107); GLUCOSE 104 mg/dL (75-110)
--- NOTE | 2019-03-20 09:26 | RADIOLOGY REPORT (SQ) ---
EXAM DESCRIPTION: CHEST 2 VIEWS COMPLETED DATE/TIME: 03/20/2019 9:15 am REASON FOR STUDY: cough COMPARISON: AP view of the chest from 04/12/2015. EXAM PARAMETERS: NUMBER OF VIEWS: Two views. TECHNIQUE: PA and lateral views of the chest were obtained.. RADIATION DOSE: NA LIMITATIONS: none FINDINGS: LUNGS AND PLEURA: No consolidation, pleural effusion or pneumothorax. MEDIASTINUM AND HILAR STRUCTURES: No mediastinal or hilar contour abnormality. HEART AND VASCULAR STRUCTURES: The cardiac silhouette and pulmonary vasculature are within normal sinha its. BONES: No acute findings. HARDWARE: Surgical clip that projects within the right upper quadrant. OTHER: No other finding. IMPRESSION: No acute cardiopulmonary process. TECHNICAL DOCUMENTATION: JOB ID: [id number] [employer]- All Rights Reserved Reading location - IP/workstation name: [email or web address]
[2019-03-20 10:09] LABS: APPEARANCE,URINE CLEAR; BILIRUBIN,URINE NEGATIVE (NEGATIVE); COLOR,URINE YELLOW; GLUCOSE, URINE NEGATIVE (NEGATIVE); KETONES,URINE TRACE mg/dL (NEGATIVE); LEUKOCYTE ESTERASE,URINE NEGATIVE (NEGATIVE); NITRITE,URINE NEGATIVE (NEGATIVE); PROTEIN,URINE 30 mg/dL (NEGATIVE); URINE SPECIFIC GRAVITY 1.017; UROBILINOGEN,URINE NEGATIVE mg/dL (<2.0)
--- NOTE | 2019-03-20 10:39 | ER Document Report ---
ED General - General Chief Complaint: Nausea/Vomiting/Diarrhea Stated Complaint: VOMITING/DIARRHEA Time Seen by Provider: 03/20/19 08:25 Mode of Arrival: Ambulatory Information source: Patient TRAVEL OUTSIDE OF THE [place] IN LAST 30 DAYS: No - HPI Notes: Patient presents with cough congestion fever chills body aches abdominal pain and vomiting. Is been going on for approximately 10 days per patient. It is worse with exertion and better with rest. Symptoms been moderate. The body aches do radiate throughout her body. The symptoms have mainly been constant. - Related Data Allergies/Adverse Reactions: ampicillin [Ampicillin] Allergy (Verified 09/27/18 14:04) cefoxitin sodium [From Mefoxin] Allergy (Verified 09/27/18 14:04) ciprofloxacin [From Cipro] Allergy (Verified 09/27/18 14:04) ciprofloxacin HCl [From Cipro] Allergy (Verified 09/27/18 14:04) erythromycin base [Erythromycin Base] Allergy (Verified 09/27/18 14:04) metronidazole [From Flagyl] Allergy (Verified 09/27/18 14:04) Metronidazole HCl [From Flagyl] Allergy (Verified 09/27/18 14:04) ondansetron [From Zofran] Allergy (Verified 03/20/19 08:20) Penicillins Allergy (Verified 09/27/18 14:04) ranitidine HCl [From Zantac] Allergy (Verified 09/27/18 14:04) Home Medications: PREVACID, HCTZ, AMLODIPINEM OMEPRAZOLE Past Medical History - General Information source: Patient - Social History Smoking Status: Current Every Day Smoker Frequency of alcohol use: None Drug Abuse: None Family History: Reviewed & Not Pertinent Patient has suicidal ideation: No Patient has homicidal ideation: No - Past Medical History Cardiac Medical History: Reports: Hx Hypertension Pulmonary Medical History: Reports: Hx Asthma Neurological Medical History: Reports: Hx Migraine Renal/ Medical History: Reports: Hx Kidney Stones. Denies: Hx Peritoneal Dialysis Musculoskeletal Medical History: Reports Hx Arthritis, Reports Hx Musculoskeletal Trauma Past Surgical History: Reports: Hx Appendectomy, Hx Bowel Surgery - obstruction colon Resection, Hx Cholecystectomy, Hx Hysterectomy - Immunizations Immunizations up to date: Yes Hx Diphtheria, Pertussis, Tetanus Vaccination: Yes Review of Systems - Review of Systems Constitutional: Chills, Fever, Malaise Cardiovascular: Chest pain. denies: Palpitations Respiratory: Cough. denies: Short of breath -: Yes All other systems reviewed and negative Physical Exam - Vital signs Vitals: Temp Pulse Resp BP Pulse Ox 98.0 F 76 19 171/91 H 97 03/20/19 07:37 03/20/19 07:37 03/20/19 07:37 03/20/19 07:37 03/20/19 07:37 Interpretation: Hypertensive - General General appearance: Appears well, Alert - HEENT Head: Normocephalic, Atraumatic Eyes: Normal Pupils: PERRL - Respiratory Respiratory status: No respiratory distress Chest status: Nontender Breath sounds: Normal Chest palpation: Normal - Cardiovascular Rhythm: Regular Heart sounds: Normal auscultation Murmur: No - Abdominal Inspection: Normal Distension: No distension Bowel sounds: Normal Tenderness: Tender - Mild epigastric tenderness to palpation Organomegaly: No organomegaly - Back Back: Normal, Nontender - Extremities General upper extremity: Normal inspection, Nontender, Normal color, Normal ROM, Normal temperature General lower extremity: Normal inspection, Nontender, Normal color, Normal ROM, Normal temperature, Normal weight bearing. No: Ely's sign - Neurological Neuro grossly intact: Yes Cognition: Normal Orientation: AAOx4 [place] Coma Scale Eye Opening: Spontaneous [place] Coma Scale Verbal: Oriented [place] Coma Scale Motor: Obeys Commands Sudeep Coma Scale Total: 15 Speech: Normal Motor strength normal: LUE, RUE, LLE, RLE Sensory: Normal - Psychological Associated symptoms: Normal affect, Normal mood - Skin Skin Temperature: Warm Skin Moisture: Dry Skin Color: Normal Course - Vital Signs Vital signs: Temp Pulse Resp BP Pulse Ox 97.8 F 80 12 126/60 H 97 03/20/19 09:18 03/20/19 07:56 03/20/19 09:18 03/20/19 09:18 03/20/19 09:18 - Laboratory Result Diagrams: 03/20/19 08:16 03/20/19 08:16 Laboratory results interpreted by me: 03/20/19 03/20/19 03/20/19 08:16 08:16 09:54 Hgb 11.7 L Hct 34.5 L MCV 75 L MCH 25.3 L RDW 15.0 H Chloride 108 H Creatinine 0.46 L Urine Protein 30 H Urine Ketones TRACE H - Diagnostic Test Radiology reviewed: Image reviewed, Reports reviewed Discharge - Discharge Clinical Impression: URI (upper respiratory infection) Qualifiers: URI type: unspecified URI Qualified Code(s): J06.9 - Acute upper respiratory infection, unspecified Condition: Stable Disposition: HOME, SELF-CARE Instructions: Upper Respiratory Illness ([facility]) Additional Instructions: Your blood pressure is mildly elevated today. Please make sure you are taking your medicine every day as prescribed. Please follow-up with your primary care physician within the next 3 to 5 days for reevaluation of your blood pressure. Prescriptions: Sulfamethoxazole/Trimethoprim [Bactrim Ds Tablet] 1 each PO BID 7 Days #14 tablet Hydrocodone/Acetaminophen [[place] 5-325 mg Tablet] 1 tab PO Q6 PRN 3 Days #12 tablet PRN Reason: Promethazine HCl [Phenergan 25 mg Tablet] 25 mg PO Q6 PRN 3 Days #10 tablet PRN Reason: Forms: Return to School Referrals: [facility] [Provider Group] - Follow up as needed
[2019-03-20 11:55] VITALS: BP 142/87
== END 2019-03-20 11:54 | disposition home or self-care (01) ==
LOC: ER 07:33
DX: J06.9 Acute upper respiratory infection, unspecified (principal); R11.2 Nausea with vomiting, unspecified; R19.7 Diarrhea, unspecified; R05 Cough; R09.81 Nasal congestion; R50.9 Fever, unspecified; M79.10 Myalgia, unspecified site; R53.81 Other malaise; R07.9 Chest pain, unspecified; R10.9 Unspecified abdominal pain; Z88.1 Allergy status to other antibiotic agents; Z88.0 Allergy status to penicillin; Z88.8 Allergy status to other drugs, medicaments and biological substances; F17.200 Nicotine dependence, unspecified, uncomplicated; I10 Essential (primary) hypertension; J45.909 Unspecified asthma, uncomplicated; Z79.899 Other long term (current) drug therapy
CPT/HCPCS: 99283; 96361; 96374; 96375; 36415; 85025; 80053; 81001; 71046; J1885; J2765; J7030